=== PATIENT | male | born 1940 | race Caucasian/White ===

== ENCOUNTER 2022-09-08 09:28 | Outpatient (OUT) | payer MEDICARE, OTHER, SELFPAY ==
[2022-09-08 10:58] LABS: Albumin Level 3.7 g/dL (3.4-5.0); Anion Gap 9.6; BUN Creatinine Ratio 15.5; Calcium 8.4 mg/dL (8.5-10.1); Carbon Dioxide 29.3 mmol/L (21.0-32.0); Chloride 107 mmol/L (98-107); Estimated GFR (African America >60 (>=60); Estimated GFR (Non-African Ame >60 (>=60); Free T3 2.26 pg/mL (2.18-3.98); Glucose 103 mg/dL (74-106); Phosphorus 3.4 mg/dL (2.6-4.7); Potassium 3.9 mmol/L (3.5-5.1); Sodium 142 mmol/L (136-145); Thyroid Stimulating Hormone 0.163 uIU/mL (0.358-3.740)
[2022-09-08 11:13] LABS: Prostate Specific Antigen Dx 1.37 ng/mL (<=4.00)
[2022-09-08 13:01] LABS: Estimated Average Glucose 77 mg/dL; Glycohemoglobin A1C 4.3 % (4.5-6.2)
[2022-09-09 04:07] LABS: Testosterone 194 ng/dL (264-916)
== END 2022-09-08 09:29 | disposition home or self-care (01) ==
PROVIDERS: PCP Family Medicine; Visit Provider Internal Medicine
DX: E23.0 Hypopituitarism (principal); E03.8 Other specified hypothyroidism; E27.49 Other adrenocortical insufficiency; E03.9 Hypothyroidism, unspecified
CPT/HCPCS: 36415; 80069; 83036; 84153; 84403; 84439; 84443; 84481

== ENCOUNTER 2023-03-05 12:11 | Outpatient (OUT) | payer MEDICARE, OTHER, SELFPAY ==
[2023-03-05 12:31] LABS: Basophils Absolute Auto 0.1 10^3/uL (0.0-0.1); Basophils Percent Auto 1.3 % (0.2-2.0); Eosinophils Percent Auto 0.9 % (0.9-7.0); Hematocrit 40.3 % (42.0-54.0); Hemoglobin 13.8 g/dL (14.0-18.0); Immature Granulocytes Abs Auto 0.01 10^3/uL (0.00-0.03); Immature Granulocytes Pct Auto 0.2 % (0.0-0.5); Lymphocytes Absolute Auto 1.3 10^3/uL (1.2-3.8); Lymphocytes Percent Auto 29.7 % (20.5-60.0); Mean Corpuscular HGB Conc 34.2 g/dL (29.9-35.2); Mean Corpuscular Hemoglobin 29.6 pg (25.9-34.0); Mean Corpuscular Volume 86.5 fL (80.0-94.0); Monocytes Absolute Auto 0.3 10^3/uL (0.3-0.8); Monocytes Percent Auto 6.9 % (1.7-12.0); Neutrophils Absolute Auto 2.7 10^3/uL (1.4-6.5); Platelet Count 167 10^3/uL (150-450); Red Blood Count 4.66 10^6/uL (4.70-6.10); Red Cell Distribution Width 12.6 % (11.0-15.0); White Blood Count 4.5 10^3/uL (4.0-11.0)
[2023-03-05 13:01] LABS: Alanine Aminotransferase 19 U/L (16-63); Albumin Globulin Ratio 1.1; Albumin Level 3.7 g/dL (3.4-5.0); Alkaline Phosphatase 74 U/L (46-116); Anion Gap 7.2; Aspartate Amino Transferase 20 U/L (15-37); BUN Creatinine Ratio 14.4; Bilirubin Total 0.9 mg/dL (0.2-1.0); Calcium 8.7 mg/dL (8.5-10.1); Carbon Dioxide 31.5 mmol/L (21.0-32.0); Chloride 104 mmol/L (98-107); Estimated GFR (African America >60 (>=60); Estimated GFR (Non-African Ame 59 (>=60); Globulin 3.4 g/dL; Glucose 87 mg/dL (74-106); Potassium 3.7 mmol/L (3.5-5.1); Sodium 139 mmol/L (136-145); Total Protein 7.1 g/dL (6.4-8.2)
[2023-03-05 13:23] LABS: Free T4 0.88 ng/dL (0.76-1.46)
== END 2023-03-05 12:12 | disposition home or self-care (01) ==
PROVIDERS: PCP Family Medicine; Visit Provider Family Medicine
DX: R11.0 Nausea (principal); E03.9 Hypothyroidism, unspecified; I10 Essential (primary) hypertension; R53.83 Other fatigue; D51.0 Vitamin B12 deficiency anemia due to intrinsic factor deficiency
CPT/HCPCS: 36415; 80053; 82607; 82746; 84439; 84443; 85025

== ENCOUNTER 2023-03-11 09:09 | Outpatient (OUT) | payer MEDICARE, OTHER, SELFPAY ==
[2023-03-11 09:44] LABS: Hemoglobin 13.3 g/dL (14.0-18.0)
[2023-03-11 10:06] LABS: Albumin Level 3.6 g/dL (3.4-5.0); Anion Gap 11.5; BUN Creatinine Ratio 19.4; Calcium 8.5 mg/dL (8.5-10.1); Carbon Dioxide 29.8 mmol/L (21.0-32.0); Chloride 105 mmol/L (98-107); Estimated GFR (African America >60 (>=60); Estimated GFR (Non-African Ame >60 (>=60); Free T3 1.34 pg/mL (2.18-3.98); Glucose 83 mg/dL (74-106); Phosphorus 3.5 mg/dL (2.6-4.7); Potassium 3.3 mmol/L (3.5-5.1); Sodium 143 mmol/L (136-145); Thyroid Stimulating Hormone 0.503 uIU/mL (0.358-3.740)
[2023-03-11 10:23] LABS: Prostate Specific Antigen Dx 0.37 ng/mL (<=4.00)
[2023-03-11 11:09] LABS: Free T4 0.84 ng/dL (0.76-1.46)
[2023-03-12 04:07] LABS: Testosterone <3 ng/dL (264-916)
== END 2023-03-11 09:10 | disposition home or self-care (01) ==
LOC: LAB 09:10
PROVIDERS: PCP Family Medicine; Visit Provider Internal Medicine
DX: E23.0 Hypopituitarism (principal); I10 Essential (primary) hypertension; E03.8 Other specified hypothyroidism; E27.49 Other adrenocortical insufficiency; E03.9 Hypothyroidism, unspecified
CPT/HCPCS: 36415; 80069; 82306; 84153; 84403; 84439; 84443; 84481; 85018

== ENCOUNTER 2023-03-12 15:17 | Emergency (ER) | payer MEDICARE, OTHER, SELFPAY ==
[2023-03-12] VITALS (18 sets, daily range): BP systolic 151–178; BP diastolic 61–71; PULSE 53–64; RESP 13–26; TEMP 36.9; O2SAT 92–99; BMI 23.6
--- NOTE | 2023-03-12 15:48 | ECG_ITS ---
The [facility] Test Date: 2023-03-12 Pat Name: SHELDON BROCK Department: Room: - Gender: Male Personal Counselor: : 1940 Requested By: NABIL DÍAZ Order Number: [id number] Reading MD: SUE ALEJO Measurements Intervals [place] Rate: 58 P: 34 [place]: 134 QRS: -39 QRSD: 104 T: 9 QT: 446 QTc: 443 Interpretive Statements 1100 Sinus rhythm 1102 Sinus arrhythmia 2440 Incomplete right bundle branch block 7200 Abnormal left axis deviation ST/T wave changes, can't exclude inferior ischemia 9130 borderline ECG No previous ECG available for comparison Electronically Signed On 03-13-2023 7:05:57 EST by SUE ALEJO
--- NOTE | 2023-03-12 15:48 | XR_ITS ---
The [address] [address] Patient Name: SHELDON BROCK MRN: [id number] date: 1940 Sex: M Assigned Patient Location: ER Current Patient Location: ER Accession/Order Number: [id number] Exam Date: 03/12/2023 16:15 Report Date: 03/12/2023 17:10 At the request of: MARILEE CONNELLY Procedure: XR chest 1V EXAM: XR chest 1V TECHNIQUE: Single AP view chest HISTORY: chest pain COMPARISON: None. FINDINGS: The heart and mediastinum are unremarkable. The lung song are clear of any acute infiltrate, effusion or mass. No acute bony abnormality. XR/XR chest 1V IMPRESSION: No acute pulmonary disease. Electronically authenticated by: EFRAIN WINSTON Date: 03/12/2023 17:10
[2023-03-12 15:57] LABS: Basophils Absolute Auto 0.1 10^3/uL (0.0-0.1); Eosinophils Absolute Auto 0.1 10^3/uL (0.0-0.7); Eosinophils Percent Auto 1.5 % (0.9-7.0); Hematocrit 38.3 % (42.0-54.0); Hemoglobin 12.9 g/dL (14.0-18.0); Immature Granulocytes Abs Auto 0.05 10^3/uL (0.00-0.03); Immature Granulocytes Pct Auto 0.6 % (0.0-0.5); Lymphocytes Absolute Auto 3.2 10^3/uL (1.2-3.8); Lymphocytes Percent Auto 39.4 % (20.5-60.0); Mean Corpuscular HGB Conc 33.7 g/dL (29.9-35.2); Mean Corpuscular Hemoglobin 29.9 pg (25.9-34.0); Mean Corpuscular Volume 88.7 fL (80.0-94.0); Mean Platelet Volume 9.4 fL (9.5-13.5); Monocytes Absolute Auto 0.5 10^3/uL (0.3-0.8); Monocytes Percent Auto 6.3 % (1.7-12.0); Neutrophils Absolute Auto 4.1 10^3/uL (1.4-6.5); Neutrophils Percent Auto 51.2 % (43.0-75.0); Platelet Count 188 10^3/uL (150-450); Red Blood Count 4.32 10^6/uL (4.70-6.10); Red Cell Distribution Width 12.8 % (11.0-15.0); White Blood Count 8.1 10^3/uL (4.0-11.0)
[2023-03-12 16:09] LABS: Alanine Aminotransferase 23 U/L (16-63); Albumin Globulin Ratio 1.1; Albumin Level 3.7 g/dL (3.4-5.0); Alkaline Phosphatase 83 U/L (46-116); Anion Gap 11.6; Aspartate Amino Transferase 14 U/L (15-37); BUN Creatinine Ratio 20.4; Bilirubin Total 0.5 mg/dL (0.2-1.0); Calcium 8.6 mg/dL (8.5-10.1); Carbon Dioxide 30.5 mmol/L (21.0-32.0); Chloride 104 mmol/L (98-107); Estimated GFR (African America >60 (>=60); Estimated GFR (Non-African Ame >60 (>=60); Globulin 3.3 g/dL; Glucose 85 mg/dL (74-106); Potassium 3.1 mmol/L (3.5-5.1); Sodium 143 mmol/L (136-145)
[2023-03-12 16:16] LABS: Troponin I High Sensitivity 5.7 pg/mL (4.0-76.1)
--- NOTE | 2023-03-12 16:50 | ED_ITS ---
HPI - Chest Pain General Chief Complaint: Chest Pain Stated Complaint: Chest Pain Time Seen by Provider: 03/12/23 16:49 Source: patient and family Mode of arrival: walk-in History of Present Illness HPI narrative: this patient's here for evaluation of a sharp stabbing pain in his chest area. He says he's had it for about four days. It is never a continuous pain. He said it just quickly calms and goes away very quickly. He says it feels like a sharp stabbing discomfort over the left precordium. Does not radiate to the neck jaw or arms. No associated diaphoresis or syncopal episodes. No headache. No shortness of breath. No squeezing or pressure-type discomfort. Has no tearing or ripping sensation into the back area. No syncopal episodes no palpitations or history of heart problems. He thinks he's had a stress test over the years but was never told he had any problems. He is not any swelling of his legs. He's not had any recent upper respiratory or influenza type symptoms he's not had fever cough sputum. No history of deep vein thrombosis or PE and he has no risk factors. He feels fine otherwise. He says he spit episodes he's had approximately 18 of them today but again they only last a brief 2nd and then they just go away. He cannot really reproduce the discomfort with any type of movement and is aware of. Related Data Allergies Allergy/AdvReac Type Severity Reaction Status Date / Time No Known Drug Allergies Allergy Verified 03/12/23 15:30 Exam Narrative Exam Narrative: very pleasant gentleman blood pressure systolic slightly elevated but his pulse oximetry is normal afebrile he has no respiratory distress he appears in no discomfort. He is not experiencing any in the brief transient stabbing episodes that he was describing as above. HEENT examination shows no carotid bruits another set on either side. There is no jugular vein distention. There is no cervical adenitis. Neck is soft and supple. Lungs are clear with no wheezes rales or rhonchi Heart sounds are normal no S3-S4 or murmur. We did him rotate his upper torso and his chest wall and palpate and I cannot reproduce his symptoms at all. There is no inflammation of the chest area noted. Physical extremities have no swelling edema deep vein thrombosis or phlebitis on clinical exam. Neurological examination shows no focal neurological findings. Constitutional Vital Signs, click to edit/add: Last Vital Signs Temp 98.5 F 03/12/23 15:26 Pulse 60 03/12/23 18:10 Resp 15 03/12/23 18:10 BP 178/71 H 03/12/23 15:38 Pulse Ox 99 03/12/23 18:10 O2 Del Method Room Air 03/12/23 15:26 Course Vital Signs Vital signs: Vital Signs Temperature 98.5 F 03/12/23 15:26 Pulse Rate 60 03/12/23 15:26 Respiratory Rate 16 03/12/23 15:26 Blood Pressure 151/61 H 03/12/23 15:26 Pulse Oximetry 99 03/12/23 15:26 Oxygen Delivery Method Room Air 03/12/23 15:26 Temperature 98.5 F 03/12/23 15:26 Pulse Rate 60 03/12/23 18:10 Respiratory Rate 15 03/12/23 18:10 Blood Pressure 178/71 H 03/12/23 15:38 Pulse Oximetry 99 03/12/23 18:10 Oxygen Delivery Method Room Air 03/12/23 15:26 MDM - Chest Pain MDM Narrative Medical decision making narrative: patient presents with atypical presentation of sharp transient chest pain. Cardiac enzymes chest x-ray EKG are all normal. I believe this is more of an atypical problem. 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 Lab Data Labs: Lab Results 03/12/23 Range/Units 15:43 WBC 8.1 (4.0-11.0) 10^3/uL RBC 4.32 L (4.70-6.10) 10^6/uL Hgb 12.9 L (14.0-18.0) g/dL Hct 38.3 L (42.0-54.0) % MCV 88.7 (80.0-94.0) fL MCH 29.9 (25.9-34.0) pg MCHC 33.7 (29.9-35.2) g/dL RDW 12.8 (11.0-15.0) % Plt Count 188 (150-450) 10^3/uL MPV 9.4 L (9.5-13.5) fL Neut % (Auto) 51.2 (43.0-75.0) % Lymph % (Auto) 39.4 (20.5-60.0) % [place] % (Auto) 6.3 (1.7-12.0) % Eos % (Auto) 1.5 (0.9-7.0) % Baso % (Auto) 1.0 (0.2-2.0) % Neut # (Auto) 4.1 (1.4-6.5) 10^3/uL Lymph # (Auto) 3.2 (1.2-3.8) 10^3/uL [place] # (Auto) 0.5 (0.3-0.8) 10^3/uL Eos # (Auto) 0.1 (0.0-0.7) 10^3/uL Baso # (Auto) 0.1 (0.0-0.1) 10^3/uL Abs Immat Gran (auto) 0.05 H (0.00-0.03) 10^3/uL Imm/Tot Granulo (auto) 0.6 H (0.0-0.5) % Sodium 143 (136-145) mmol/L Potassium 3.1 L (3.5-5.1) mmol/L Chloride 104 (98-107) mmol/L Carbon Dioxide 30.5 (21.0-32.0) mmol/L Anion Gap 11.6 BUN 22.0 H (7.0-18.0) mg/dL Creatinine 1.08 (0.70-1.30) mg/dL Est GFR ( Amer) >60 (>=60) Est GFR (Non-Af Amer) >60 (>=60) BUN/Creatinine Ratio 20.4 Glucose 85 (74-106) mg/dL Calcium 8.6 (8.5-10.1) mg/dL Total Bilirubin 0.5 (0.2-1.0) mg/dL AST 14 L (15-37) U/L ALT 23 (16-63) U/L Alkaline Phosphatase 83 (46-116) U/L Troponin I High Sens 5.7 (4.0-76.1) pg/mL NT-Pro-B Natriuret Pep 172.0 (<=1800.0) pg/mL Total Protein 7.0 (6.4-8.2) g/dL Albumin 3.7 (3.4-5.0) g/dL Globulin 3.3 g/dL Albumin/Globulin Ratio 1.1 Discharge Plan Discharge Chief Complaint: Chest Pain Clinical Impression: Atypical chest pain Patient Disposition: Home, Self-Care Time of Disposition Decision: 18:39 Additional Instructions: if symptoms persist have further evaluation and testing done as an outpatient. If the pain never becomes persisting return to the Emergency Room Stand Alone Forms: Portal Instructions Referrals: Sarah Solorzano MD [Primary Care Provider] - 1 week
== END 2023-03-12 18:47 | disposition home or self-care (01) ==
PROVIDERS: Emergency Provider Emergency Medicine Emergency Medical Services; PCP Family Medicine
DX: R07.89 Other chest pain (principal)
CPT/HCPCS: 36415; 71045; 80053; 83880; 84484; 85025; 93005; 99285

== ENCOUNTER 2023-09-14 09:39 | Outpatient (OUT) | payer MEDICARE, OTHER, SELFPAY ==
--- OUTSIDE RECORDS SUMMARY | 2023-09-14 10:02 | XMS_ITS | CCD ---
Author Organization [facility] Care Team Providers Care Can Sorter Name Role Phone PHYSICIAN, DEFAULT Unavailable Unavailable PHYSICIAN, DEFAULT Unavailable Unavailable AONA, GENE Unavailable Unavailable PHYSICIAN, DEFAULT Unavailable Unavailable PHYSICIAN, DEFAULT Unavailable Unavailable AONA, GENE Unavailable Unavailable Nabil Díaz Primary Care Provider [facility], [facility] Attending Provider [phone] Nabil Díaz MD Primary Care Provider Nabil Díaz MD Primary Care Provider Nabil Díaz MD Primary Care Provider [phone] Laina Wallis Unavailable Nabil Díaz Unavailable DR NABIL DÍAZ Primary Care Unavailable ANTHONY, DR ZACH Power Attending Unavaila ble ANTHONY, DR ZACH Power Admitting Unavaila ble NEELAM, DR GALE Simon Consulting Unavailable WINDNAFINA, DR ZACH Power Consulting Unavaila ble DÍAZ, DR NABIL Romero Primary Care Unavailable RANDEETAKRISSY, DR BROWNING Attending Unavailable ELTAKRISSY, DR BROWNING Admitting Unavailable DÍAZ, DR NABIL Romero Primary Care Unavailable ELTAHAWY, DR BROWNING Attending Unavailable ELTAHAWCristopher, DR BROWNING Admitting Unavailable DÍAZ, DR NABIL Romero Primary Care Unavailable WINDNAFINA, DR ZACH Power Attending Unavaila ble ANTHONY, DR ZACH Power Admitting Unavaila ble WINDNAFINA, DR ZACH Power Consulting Unavaila ble DÍAZ, DR NABIL Romero Primary Care Unavailable DÍAZ, DR NABIL Romero Consulting Unavailable DÍAZ, DR NABIL Romero Attending Unavailable DÍAZ, DR NABIL Romero Admitting Unavailable DÍAZ, DR NABIL Romero Consulting Unavailable DÍAZ, DR NABIL Romero Primary Care Unavailable DÍAZ, DR NABIL Romero Attending Unavailable DÍAZ, DR NABIL Romero Admitting Unavailable MCGARRYJUANPABLO HUNTER Consulting Unavailable DÍAZ, DR NABIL Romero Primary Care Unavailable ELTAHAWY, DR BROWNING Admitting Unavailable ELTAHAWY, DR BROWNING Consulting Unavailable ELTAHAWY, DR BROWNING Attending Unavailable DÍAZ, DR NABIL Romero Primary Care Unavailable ELTAHAWY, DR BROWNING Consulting Unavailable ELTAHAWY, DR BROWNING Attending Unavailable ELTAHAWY, DR BROWNING Admitting Unavailable DÍAZ, DR NABIL Romero Primary Care Unavailable JOSE DANIEL, AHMALam Attending Unavailable JOSE DANIEL, AHLUISD Admitting Unavailable SAVITA SKY Consulting Unavailable DÍAZ, DR NABIL Romero Referring Unavailable DÍAZ, DR NABIL Romero Primary Care Unavailable DÍAZ, DR NABIL Romero Consulting Unavailable DÍAZ, DR NABIL Romero Attending Unavailable DÍAZ, DR NABIL Romero Admitting Unavailable Kevon Lord Unavailable MD Nabil Díaz Primary Care Provider DO Gama Weiner Emergency Provider Ishan Sharif Attending Unavaila ble NABIL DÍAZ Primary Care Unavailable ABHYANKAR, ZHANG Referring Unavailable ABHYANKAR, ZHANG Attending Unavailable ABHYANKAR, ZHANG Referring Unavailable NABIL DÍAZ Primary Care Unavailable NABIL DÍAZ Primary Care Unavailable ABHYANKAR, ZHANG Referring Unavailable NABIL DÍAZ Primary Care Unavailable NABIL DÍAZ Primary Care Unavailable ABHYANKAR, ZHANG Attending Unavailable ABHYANKAR, ZHANG Referring Unavailable Nabil Díaz Primary Care Unavailable Gama Weiner Admitting Unavailable Gama Weiner Attending Unavailable Nabil Díaz Primary Care Unavailable Asaad, Imad Admitting Unavailable Reba Shaikhad Attending Unavailable MD Nabil Díaz Primary Care Provider MD Aby Shaikh Attending Provider Allergies Allergy Classification Reported Allergen(s) Allergy Type Date of Onset Reaction(s) Facility (9 sources) Sucralfate; Translations: [SUCRALFATE] Drug Allergy 06-21-2018 Itching [facility] (1 source) Sucralfate; Translations: [Carafate] Drug Allergy [facility] Repository Medications Current Medications Medication Drug Class(es) Dates Sig (Normalized) Sig (Original) azithromycin 250 mg oral tablet (20 sources) Macrolide Antimicrobial Start: 04-14-2022 Azithromycin 250 MG as directed Orally 2 tabs po today, then 1 tab daily x 4 more days for 5 Mar, Active Start: 04-14-2022 citalopram 10 mg oral tablet (5 sources) Serotonin Reuptake Inhibitor Start: 05-27-2023 take 10 mg by mouth once daily Citalopram Active 10 MG PO Daily May 27, 2023 12:00am dicyclomine hydrochloride 10 mg oral capsule (5 sources) Anticholinergic Start: 05-27-2023 take 10 mg by mouth twice daily Dicyclomine Active 10 MG PO Twice daily 60 30 May 27, 2023 12:00am folic acid 1 mg oral tablet (8 sources) Start: 10-30-2022 End: 10-25-2023 take 1 mg by mouth once daily Folic Acid Active 1 MG PO Daily May 27, 2023 12:00am Comment on above: Take 1 tablet by goyo th once daily. hydrocortisone 10 mg oral tablet (20 sources) Corticosteroid Start: 03-22-2021 take 10 mg by mouth once daily Hydrocortisone Active 10 MG PO Daily March 22, 2021 1:00am take 1 tablet by mouth every six hours Hydrocortisone 20 MG 1 tablet with food or milk Orally Four times a day Active Comment on above: Take 10 mg by mouth once daily. levothyroxine sodium 0.1 mg oral tablet (20 sources) l-Thyroxine Start: 06-16-2020 take 100 ug by mouth once daily Levothyroxine Active 100 MCG PO Daily March 22, 2021 1:00am take 1 tablet by mouth once lio y Levothyroxine Sodium 100 MCG TAKE 1 TABLET BY MOUTH EVERY DAY Oral for 90 Days Active methylPREDNISolone 4 mg oral tablet (3 sources) Corticosteroid Start: 03-05-2023 methylPREDNISolone 4 MG as directed Orally for 6 days Feb, Active ondansetron 4 mg oral tablet (20 sources) Serotonin-3 Receptor Antagonist Start: 06-19-2022 take 1 tablet by mouth three times daily as needed Ondansetron HCl 4 MG 1 tablet Orally tid prn for 4 days Jun, Active Start: 10-31-2020 take 1 tablet by goyo th every eight hours as needed for nausea and nausea ondansetron orally disintegrating (ZOFRAN ODT) 4 mg disintegrating tablet Indications: Nausea Take 1 tablet by mouth every 8 hours as needed for nausea/vomiting. 30 tablet 1 10/31/2020 Active Comment on above: Take 1 tablet by goyo th every 8 hours as needed for nausea/vomiting. paxlovid (300/100) 20 x 150 mg & 10 x 100mg tablet therapy pack (3 sources) Start: 3 take 3 tablets by mouth every twelve hours Paxlovid (300/100) 20 x 150 MG & 10 x 100MG 3 tablets Orally Twice a day for 5 days Oct, Active {20 (nirmatrelvir 150 MG Oral Tablet) / 10 (ritonavir 100 MG Oral Tablet) } Pack [Paxlovid 5-Day] (7 sources) Start: 3 take 3 tablets by mouth every twelve hours Paxlovid (300/100) 20 x 150 MG & 10 x 100MG 3 tablets Orally Twice a day for 5 days Oct, Active Completed/Discontinued Medications Medication Drug Class(es) Dates Sig (Normalized) Sig (Original) amitriptyline hydrochloride 10 mg oral tablet (6 sources) Tricyclic Antidepressant Start: 12-25-2021 take 1 tablet by mouth once daily at bedtime amitriptyline (ELAVIL) 10 mg tablet TAKE 1 TABLET BY MOUTH EVERYDAY AT BEDTIME 0 12/25/2021 Active Comment on above: TAKE 1 TABLET BY GOYO TH EVERYDAY AT BEDTIME amLODIPine 5 mg oral tablet (20 sources) Dihydropyridine Calcium Channel Alec Start: 12-01-2016 take 1 tablet by mouth once daily amLODIPine (NORVASC) 5 mg tablet Take 5 mg by mouth once daily. 0 12/01/2016 Active Comment on above: Take 5 mg by mouth o nce daily. atorvastatin 80 mg oral tablet (20 sources) HMG-CoA Reductase Inhibitor Start: 11-18-2016 take 1 tablet by mouth once daily atorvastatin (LIPITOR) 80 mg tablet Take 80 mg by mouth once daily. 11 11/18/2016 Active Start: 11-18-2016 take 1 tablet by goyo th once daily atorvastatin (LIPITOR) 10 mg tablet Take 10 mg by mouth once daily. 11 11/18/2016 Active Comment on above: Take 10 mg by mouth once daily. Take 80 mg by mouth once daily. B-12 - up to 1000 mcg (13 sources) Start: 03-17-2023 B-12 - up to 1 000 mcg Mar, 1 mL Start: 01-13-2023 B-12 - up to 1 000 mcg Dec, 1000 mcg Start: 11-19-2022 B-12 - up to 1 000 mcg Nov, 1000 mcg bisacodyl 5 mg delayed release oral tablet (8 sources) Stimulant Laxative Start: 05-10-2021 Bisacodyl ( DULCOLAX) 5 mg tab Use as directed for Miralax / Gatorade Bowel Prep Kit 4 tablet 0 05/10/2021 Active Comment on above: Use as directed for Miralax / Gatorade Bowel Prep Kit carvedilol 6.25 mg oral tablet (20 sources) alpha-Adrenergic Alec, beta-Adrenergic Alec carvedilol (COREG) 6.25 mg tablet Take by mouth every 12 hours. 0 Active take 1 tablet by goyo th every twelve hours Carvedilol 6.25 MG 1 tablet with food Orally Twice a day Active Comment on above: Take by mouth every 12 hours. Gatorade Sports Drink (8 sources) Start: 05-10-2021 Gatorade Sports Drink Use as directed for Miralax / Gatorade Bowel Prep Kit 0 05/10/2021 Active Comment on above: Use as directed for Miralax / Gatorade Bowel Prep Kit icosapent ethyl 1000 mg oral capsule (7 sources) icosapent ethyl (VASCEPA) 1 gram capsule icosapent ethyl (VASCEPA) 1 gram capsule Vascepa 1 gram capsule TAKE 2 CAPSULES BY MOUTH TWICE A DAY 0 Active Comment on above: Vascepa 1 gram capsu le TAKE 2 CAPSULES BY MOUTH TWICE A DAY lisinopril 5 mg oral tablet (7 sources) Angiotensin Converting Enzyme Inhibitor take 1 tablet by mouth once daily lisinopril (ZESTRIL, PRINIVIL) 5 mg tablet lisinopril 5 mg tablet TAKE 1 TABLET BY MOUTH EVERY DAY 0 Active Comment on above: lisinopril 5 mg tabl et TAKE 1 TABLET BY MOUTH EVERY DAY 24 hr metoprolol succinate 25 mg extended release oral tablet (16 sources) beta-Adrenergic Alec Start: 2 End: 4 take 1 tablet by mouth once daily Metoprolol Succinate (Toprol Xl) 25 mg Tablet Extended Release 24 Hr Discontinued 25 MG PO Daily March 25, 2021 1:00am May 27, 2023 1:53pm Comment on above: Take 25 mg by mouth once daily. omeprazole 40 mg delayed release oral capsule (20 sources) Proton Pump Inhibitor Start: take 1 capsule by mouth once daily omeprazole (PRILOSEC) 40 mg capsule Take 1 capsule by mouth once daily. 30 capsule 3 05/28/2021 Active take 1 capsule by mouth twice da dona Omeprazole 20 MG TAKE 1 CAPSULE BY MOUTH TWICE A DAY Oral for 30 Days Active Comment on above: Take 1 capsule by [facility] once daily. polyethylene glycol 3350 82285 mg powder for oral solution (8 sources) Osmotic Laxative Start: 05-10-2021 polyethylene glycol 3350 (MIRALAX, GLYCOLAX) 17 gram/dose powder Use as directed for Miralax / Gatorade Bowel Prep Kit 238 g 0 05/10/2021 Active Comment on above: Use as directed for Miralax / Gatorade Bowel Prep Kit Testosterone (20 sources) Androgen Start: 05-12-2022 Start: 05-12-2022 TESTOSTERONE 2 7 Apr, 2022 0.5 mL Start: 04-08-2022 Start: 04-08-2022 TESTOSTERONE 2 Mar, 0.5 mL Start: 03-22-2021 Testosterone C ypionate Active 200 MG SUBCUT EVERY 3 WEEKS March 22, 2021 1:00am inject 100 mg by int ramuscular injection every other week testosterone cypionate (DEPO-TESTOSTERONE) 100 mg/mL injection Inject 100 mg intramuscularly every 2 weeks. 0 Active Testosterone Cyp ionate 200 MG/ML (Schedule III Drug) INJECT 0.5ML INTRAMUSCULARLY EVERY 3 WEEKS Intramuscular for 90 Days Active Testosterone Cyp ionate 200 MG/ML (Schedule III Drug) INJECT 0.5ML INTRAMUSCULARLY EVERY 3 WEEKS Intramuscular for 90 Days Active Comment on above: Inject 100 mg intram uscularly every 2 weeks. Testosterone-Pt brought own med (20 sources) Start: 04-08-2023 Testosterone-Pt brought own med Mar, 0.5 mL Start: 03-17-2023 Testosterone-P t brought own med Mar, 0.5 mL Start: 02-09-2023 Testosterone-P t brought own med Jan, 0.5 mL Start: 01-13-2023 Testosterone-P t brought own med Dec, 0.5 mL Start: 12-16-2022 Testosterone-P t brought own med Dec, 0.5 mL Start: 11-19-2022 Testosterone-P t brought own med Nov, 0.5 mL Start: 10-23-2022 Testosterone-P t brought own med Oct, 0.5 Start: 09-10-2022 Testosterone-P t brought own med Aug, 0.5 mL Start: 08-19-2022 Testosterone-P t brought own med Aug, 0.5 mL Start: 08-19-2022 Start: 07-28-2022 Start: 07-28-2022 Testosterone-P t brought own med July, 100 mg Start: 07-02-2022 Start: 07-02-2022 Testosterone-P t brought own med Jun, 0.5 Start: 06-06-2022 Start: 06-06-2022 Testosterone-P t brought own med May, Problems Active Problems Problem Classification Problem Date Documented Da te Episodic/Chronic Abdominal pain (20 sources) Generalized abdominal pain; Translations: [Generalized abdominal pain] Onset: 08-31-2017 05-27-2023 Episodic Anxiety disorders (10 sources) Generalized anxiety disorder; Translations: [Generalized anxiety disorder] Chronic Cardiac dysrhythmias (8 sources) Ventricular premature beats; Translations: [Ventricular premature depolarization] Onset: 02-27-2012 02-27-2012 Chronic Chronic obstructive pulmonary disease and bronchiectasis (14 sources) Bronchitis, not specified as acute or chronic; Translations: [Bronchitis] Onset: 09-05-2021 Episodic Coagulation and hemorrhagic disorders (20 sources) Platelet count below reference range; Translations: [Thrombocytopenia, unspecified] Onset: 10-02-2016 03-31-2018 Chronic Deficiency and other anemia (20 sources) Pancytopenia; Translations: [Other pancytopenia] Onset: 10-29-2017 03-22-2021 Chronic Deficiency and other anemia (5 sources) Nutritional anemia; Translations: [Vitamin B12 deficiency anemia, unspecified] Episodic Deficiency and other anemia (1 source) Folate deficiency anemia due to dietary causes; Translations: [Dietary folate deficiency anemia] 10-30-2022 Episodic Deficiency and other anemia (9 sources) Pernicious anemia; Translations: [Vitamin B12 deficiency anemia due to intrinsic factor deficiency] 07-24-2023 Episodic Deficiency and other anemia (3 sources) Vitamin B12 deficiency anemia due to intrinsic factor deficiency Episodic Diseases of white blood cells (10 sources) Lymphocytosis; Translations: [Lymphocytosis (symptomatic)] Onset: 10-29-2017 Chronic Disorders of lipid metabolism (20 sources) Hyperlipidemia; Translations: [Hyperlipidemia, unspecified] Onset: 02-27-2012 02-27-2012 Chronic Essential hypertension (20 sources) Hypertensive disorder; Translations: [Essential (primary) hypertension] Onset: 04-02-2011 04-02-2011 Chronic Immunizations and screening for infectious disease (10 sources) Vaccination given; Translations: [Encounter for immunization] Episodic Nausea and vomiting (20 sources) Nausea; Translations: [Nausea] Episodic Neoplasms of unspecified nature or uncertain behavior (2 sources) Monoclonal gammopathy of uncertain significance; Translations: [Monoclonal gammopathy] Chronic Noninfectious gastroenteritis (2 sources) Chronic diarrhea; Translations: [Noninfective gastroenteritis and colitis, unspecified] Episodic Other circulatory disease (10 sources) Elevated blood-pressure reading without diagnosis of hypertension; Translations: [Elevated blood-pressure reading, without diagnosis of hypertension] Episodic Other endocrine disorders (1 source) Hypopituitarism; Translations: [HYPOPITUITARISM] Onset: 03-21-2022 Chronic Other gastrointestinal disorders (10 sources) Irritable bowel syndrome with diarrhea; Translations: [Irritable bowel syndrome with diarrhea] Chronic Other gastrointestinal disorders (5 sources) Irritable bowel syndrome; Translations: [Irritable bowel syndrome without diarrhea] 05-27-2023 Chronic Other gastrointestinal disorders (4 sources) Irritable bowel syndrome without diarrhea; Translations: [Irritable bowel syndrome] 05-27-2023 Chronic Other gastrointestinal disorders (20 sources) Diarrhea; Translations: [Diarrhea] Episodic Other nervous system disorders (4 sources) Other symptoms and signs involving cognitive functions and awareness; Translations: [OTH SX SIGNS COG FUNC AND AWARENESS] Onset: 07-22-2022 Episodic Other nutritional; endocrine; and metabolic disorders (12 sources) Weight decreased; Translations: [Weight loss, unintentional] Episodic Other nutritional; endocrine; and metabolic disorders (10 sources) Abnormal weight loss; Translations: [Abnormal weight loss] Episodic Other screening for suspected conditions (not mental disorders or infectious disease) (20 sources) Other specified abnormal findings of blood chemistry; Translations: [Blood chemistry abnormal] Episodic Other upper respiratory infections (10 sources) Chronic sinusitis; Translations: [Chronic sinusitis, unspecified] Chronic Thyroid disorders (20 sources) Acquired hypothyroidism; Translations: [Hypothyroidism, unspecified] Onset: 03-21-2022 Chronic Unclassified (3 sources) CONTACT W/AND (SUSP) EXPOS COVID-19; Translations: [CONTACT W/AND (SUSP) EXPOS COVID-19] Onset: 08-23-2021 Unclassified (11 sources) Encounter for health counseling related to travel; Translations: [ENC FOR HEALTH SEED POTATO ARRANGER RELTD TRAVEL] Onset: 08-23-2021 Viral infection (8 sources) Disease caused by 2019-nCoV; Translations: [COVID-19] 10-20-2022 Episodic Viral infection (11 sources) Disease caused by 2019-nCoV; Translations: [COVID-19] Past or Other Problems Problem Classification Problem Date Documented Da te Episodic/Chronic Acute bronchitis (10 sources) Acute bronchitis; Translations: [Acute bronchitis, unspecified] Onset: 08-20-2016 Episodic Cardiac dysrhythmias (2 sources) Palpitations; Translations: [PALPITATIONS] Onset: 04-09-2022 Episodic Deficiency and other anemia (14 sources) Anemia; Translations: [Anemia, unspecified] Onset: 10-02-2016 03-31-2018 Episodic Malaise and fatigue (11 sources) Fatigue; Translations: [Other fatigue] Onset: 03-01-2018 Episodic Other and unspecified benign neoplasm (8 sources) Pituitary adenoma; Translations: [Benign neoplasm of pituitary gland] Onset: 05-21-2011 05-21-2011 Episodic Other injuries and conditions due to external causes (5 sources) Exhaustion due to excessive exertion, initial encounter; Translations: [EXHAUSTION D/T EXCESS EXERTION INIT] Onset: 04-08-2022 Episodic Other nutritional; endocrine; and metabolic disorders (1 source) Anorexia; Translations: [Anorexia] Onset: 10-20-2022 Episodic Other upper respiratory infections (20 sources) Recurrent acute sinusitis; Translations: [Acute recurrent maxillary sinusitis] Onset: 09-03-2016 09-03-2016 Episodic Residual codes; unclassified (8 sources) Reduced libido; Translations: [Decreased libido] Onset: 04-02-2011 04-02-2011 Episodic Unclassified (1 source) Contact with and (suspected) exposure to covid-19 Z20.822 Unclassified (1 source) CONTACT W/AND (SUSP) EXPOS COVID-19; Translations: [CONTACT W/AND (SUSP) EXPOS COVID-19] Onset: 08-20-2021 Results Test Name Value Interpretation Reference Range Facility Blood Urea Nitrogenon 2023 Urea nitrogen [Mass/Vol] 16 mg/dL Normal 7-25 [facility] Comment on above: Order Comment: STAT FOR CT Performed By: #### B UN, CREAT #### [address] abdomen pelvis w conon CT abdomen pelvis w con [facility] [place] [address] [place] [address] CT Scan Report Signed Patient: Nomi Mckee MR#: [id number] 8 : 1940 Acct:[id number] Age/Sex: 82 / M ADM Date: 06/04/23 Loc: CT Room: Type: [facility] Attending Dr: Aby Shaikh MD Copies to: Aby Shaikh MD Ordering Provider: Aby Shaikh MD Date of Service: 06/04/23 CT/CT abdomen pelvis w con: R10.9 - Unspecified abdominal pain CT ABDOMEN AND PELVIS WITH CONTRAST COMPARISON: None CLINICAL DATA: Burning sensation at the left groin for months. Spiral images were obtained through the abdomen and pelvis following oral and 90 mL of Isovue-300. This CT exam was performed using one or more following dose reduction techniques: Automated exposure control, adjustment of the mA and/or kV according to patient size, or use of iterative reconstruction technique. Limited cuts through the lung bases show possible tiny right lower lobe nodule on the first image measuring 4 mm in size. The gallbladder is contracted. No obvious calcified gallstones are noted. There are a few tiny hepatic hypodensities which are difficult to fully evaluate due to size however they may be cysts. The spleen, pancreas and adrenal glands show no acute findings. There are symmetric renal nephrograms. Tiny renal cysts are present. There is slight fullness of the renal collecting system on the right. There is, however, no ureteral dilatation or stones. There is atherosclerotic plaque at the aorta and iliac arteries. No enlarged lymph nodes or ascites are seen. Small bowel loops are not distended. Mild stool is present along the colon. There are minor degenerative changes at the spine, greatest at the lower facets. Images through the pelvis show no dilated small bowel loops. No appendiceal inflammation is seen. There is mild distal colonic stool. There is minimal diverticular disease, without active inflammation. The prostate is slightly prominent. The bladder is not well-distended, limiting assessment. No ascites is identified. There is no inguinal hernia. There are some benign inguinal lymph nodes with fatty angeline. CT/CT abdomen pelvis w con IMPRESSION: POSSIBLE TINY INCIDENTAL RIGHT LOWER LOBE PULMONARY NODULE ON THE FIRST IMAGE. MILD RIGHT PELVICALIECTASIS, WITHOUT URETERAL DILATATION OR STONES. UNDER DISTENDED URINARY BLADDER, LIMITING ASSESSMENT. PROBABLE TINY HEPATIC AND RENAL CYSTS. NO OTHER ACUTE FINDINGS. Impression dictated by: Carri Alvarado M.D.06/04/2023 11:42 AM Dictation Location: [place] [address] Transcribed By: [facility] 06/04/23 1142 Dictated By: Carri Alvarado MD 06/04/23 1109 Signed By: 06/04/23 1142 [facility] Creatinineon 06-04-2023 Creatinine [Mass/Vol] 1.16 mg/dL Normal 0.70-1.30 [facility] Comment on above: Order Comment: STAT FOR CT Performed By: #### B GEE, CREAT #### [facility] [address] [place] [address] GFR/1.73 sq M.predicted MDRD (S/P/Bld) [Vol rate/Area] mL/min/{1.73_m2} [facility] Comment on above: Order Comment: STAT FOR CT Result Comment: PERF ORMED BY: [place] [address] PATHOLOGIST LINING SETTER CAL SEBASTIAN M.D. Performed By: #### B GEE, CREAT #### [facility] [address] [place] [address] Creatinine [Mass/volume] in Serum or PlasmaOrdered By: Aby Shaikh on 06-04-2023 Creatinine [Mass/Vol] 1.16 mg/dL 0.70-1.30 [facility] No Panel InformationOrdered By: Aby Shaikh on 06-04-2023 Estimated GFR (CKD-EPI) > 60.0 mL/Min [facility] Creatinine Clearance (Chem N/A [facility] Urea nitrogen [Mass/volume] in Serum or PlasmaOrdered By: Aby Shaikh on 06-04-2023 Urea nitrogen [Mass/Vol] 16 mg/dL 7 [facility] CNOVSPon 04-29-2023 CNOVSP Visit (SP) Office ([place]) MCKEENOMI Alfonso ([id number]) 1940 M Date Time Provider Department 04/29/23 2:15 PM ZHANG JAEGER During your visit today, we recorded the following information about you: Temperature Pulse Respiration Blood pressure 97.5 degrees 60/minute 16/minute 113/99 Weight Height 78.9 kg 1.854 m Donna Hopkins MA 04/29/2023 2:15 PM Signed Patient states he is having bowel issues which is not new he has had Colonoscopy's in the past, he is scheduled to see the GI Physician. LUIS Castillo Vivek, MD 05/02/2023 3:49 PM Signed NAME: Nomi Mckee NO.: [id number] DATE OF SERVICE: April 29, 2023 (Arlene) Some elements in this clinic note that are critical to medical decision making have been carefully reviewed and included from a prior clinic note dated: October 30, 2022 (Arlene) Additional Clinicians involved in oNmi Mckee's care: CC: anemia, thrombocytopenia, MGUS ASSESSMENT: Anemia, thrombocytopenia (stable), slight monoclonal protein (resolved) Work up has been negative - However, his B12 has been on the lower side of normal in the past. Suspect B12 deficiency - and will likely need replacement. Anemia has likely recovered with testosterone replacement which he continues. Interestingly he had undetectable haptoglobin with negative marybel. Maybe mild hemolysis, but this would not explain platelet deficiency. We have been monitoring his disease since 2017. His been M spike seems to have disappeared and maintains no other signs of a paraprotein. Low testosterone 2ndary to adrenal insufficiency and prior pituitary adenoma. Also has low cortisol. 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 PLAN: Continue B12 shot 1000 mcg Please do this at Dr. Díaz's office every 6 weeks Continue folic acid 1000 mcg RTC in 6 months repeat labs 1 week before - HPI: CASE HISTORY: Reverse Chronological Order 05/2021 - Had EGD / Colonoscopy neg H. Pylori, + hyperplastic colon polyp 08/2017 - did not show M spike on protein electrophoresis. 11/2016 - did not show M spike on protein electrophoresis. 10/03/2016 - Urinary protein electrophoresis shows no M protein. Serum protein electrophoresis does show an M spike of 0.24. 01/2016 - EGD normal Updated Visit, April 29, 2023: Gene returns today for a follow up. He has been receiving B12 shots with Dr. Díaz. B12 has improved, iron studies and folic acid are great. Anemia has improved, platelets have decreased slightly - not of concern. He continues testosterone shots as well. He takes Imodium for chronic diarrhea and pain. Likely a bacterial overgrowth, since he feels better after colonoscopy prep. I suggested trying metamucil. 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 More anemic this time Folate is low and B12 remains on the low side. No M-protein - will stop checking. 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 08/2021 caught COVID while he was in [facility] and was hospitalized. 05/2021 Had EGD / Colonoscopy neg H. Pylori, + hyperplastic colon polyp Labs reviewed and are stable. 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 His Soledad ( 4 years) is baby siting great grandchildren today. Updated Visit, October 05, 2020: GI evaluated - bacterial overgrowth noted. Getting further workup done at [facility] soon. He doesn't think B12 really helped him much. Continue conservative follow up. Has been enjoying traveling and did a riverboat cruise down the [facility] Updated Visit, March 26, 2020: This is a 79 year old male past medical history includes hyperlipidemia, irritable bowel syndrome, pituitary adenoma, hypertension. Had colonoscopy in 2015. Had EGD that was normal as well in January 2016. He is a former smoker. Presented originally with fatigue. Urinary protein electrophoresis from 10/03/16 shows no M protein. Repeat in November 2016 in August 2017 did not show M spike on protein electrophoresis. Serum protein electrophoresis from 10/03/16 does show an M spike of 0.24. B 12 normal, ferritin 409, iron 79, saturation is good. Normal tsh. In mid 2017 hospitalized for 8 days at [facility] with abdominal pain. He was found to have a bacterial infection. He lost 10 pounds which he is having difficulty gaining back. He was also found to have a low sodium level. He has occasional fatigue. He occasionally feels the need to take naps. He is consuming [address] abd without contrast with no abnormality. Today, he is getting fatigue more often even though he is very active. Also has diarrhea (more content not included)... Normal [facility] CBC W Auto Differential pane l (Bld)on 04-23-2023 Basophils (Bld) [#/Vol] 0.05 10*3/uL Normal <0.11 [facility] Comment on above: Order Comment: Speci men Type: BLOOD SPECIMEN [facility] Address: [address] [place], [place] [address] [address] Performed By: #### 2 532-0, 3084-1, 2776-03, #### [facility] CLIA [id number] [address] [place] [address] 47547 Basophils/100 WBC (Bld) 0.8 % Normal [facility] Comment on above: Order Comment: Speci men Type: BLOOD SPECIMEN [facility]: [facility] Address: [address] [place] [address] Performed By: #### 2 532-0, 308-1, 2776-03, #### [facility] CLIA [id number] [address] [place] [address] 36333 Differential cell count method Nom (Bld) Auto Normal [facility] Comment on above: Order Comment: Speci men Type: BLOOD SPECIMEN [facility] Address: [address] [place] [address] Performed By: #### 2 532-0, 3083-1, 2776-03, #### [facility] CLIA [id number] [address] [place] [address] 50461 Eosinophils (Bld) [#/Vol] 0.09 10*3/uL Normal <0.46 [facility] Comment on above: Order Comment: Speci men Type: BLOOD SPECIMEN [facility] Address: [address] [place] [address] Performed By: #### 2 532-0, 3083-1, 2776-03, #### [facility] CLIA [id number] [address] [place] [address] 92447 Eosinophils/100 WBC (Bld) 1.5 % Normal [facility] Comment on above: Order Comment: Speci men Type: BLOOD SPECIMEN [facility] Address: [address] [place] [address] Performed By: #### 2 532-0, 3083-1, 2776-03, #### [facility] CLIA [id number] [address] [place] [address] 95374 Erythrocyte distribution width (RBC) [Ratio] 13.2 % Normal 11.5-15.0 [facility] Comment on above: Order Comment: Speci men Type: BLOOD SPECIMEN [facility] Address: [address] [place] [address] Performed By: #### 2 532-0, 3084-1, 2777-1, 51080-3 #### [facility] CLIA [id number] [address] [place] [address] 55545 Hematocrit (Bld) [Volume fraction] 38.9 % Low 39.0-51.0 [facility] Comment on above: Order Comment: Speci men Type: BLOOD SPECIMEN [facility] Address: [address] [place] [address] Performed By: #### 2 532-0, 3084-1, 7-1, 52237-9 #### [facility] CLIA [id number] [address] [place] [address] 51376 Hemoglobin (Bld) [Mass/Vol] 13.5 g/dL Normal 13.0-17.0 [facility] Comment on above: Order Comment: Speci men Type: BLOOD SPECIMEN [facility] Address: [address] [place] [address] Performed By: #### 2 532-0, 3084-1, 7-1, 43394-7 #### [facility] CLIA [id number] [address] [place] [address] 15409 Immature granulocytes (Bld) [#/Vol] 10*3/uL Normal <0.10 [facility] Comment on above: Order Comment: Speci men Type: BLOOD SPECIMEN [facility] Address: [address] [place] [address] Performed By: #### 2 532-0, 3084-1, 2777-1, 55254-8 #### [facility] CLIA [id number] [address] [place] [address] 66142 Immature granulocytes/100 WBC (Bld) 0.2 % Normal [facility] Comment on above: Order Comment: Speci men Type: BLOOD SPECIMEN [facility] Address: [place] [address] Performed By: #### 2 532-0, 3084-1, 2776-, #### [facility] CLIA [id number] [address] [place] [address] 06250 Lymphocytes (Bld) [#/Vol] 2.46 10*3/uL Normal 1.00-4.00 [facility] Comment on above: Order Comment: Speci men Type: BLOOD SPECIMEN [facility] Address: [address] [place] [address] Performed By: #### 2 532-0, 3084-1, 2776-03, #### [facility] CLIA [id number] [address] [place] [address] 40380 Lymphocytes/100 WBC (Bld) 40.9 % Normal [facility] Comment on above: Order Comment: Speci men Type: BLOOD SPECIMEN [facility] Address: [address] [place] [address] Performed By: #### 2 532-0, 3084-1, 2776-03, #### [facility] CLIA [id number] [address] [place] [address] 64328 MCH (RBC) [Entitic mass] 30.3 pg Normal 26.0-34.0 [facility] Comment on above: Order Comment: Speci men Type: BLOOD SPECIMEN [facility] Address: [address] [place] [address] Performed By: #### 2 532-0, 308-1, 2776-03, #### [facility] CLIA [id number] [address] [place] [address] 53786 MCHC (RBC) [Mass/Vol] 34.7 g/dL Normal 30.5-36.0 [facility] Comment on above: Order Comment: Speci men Type: BLOOD SPECIMEN [facility] Address: [address] [address] Performed By: #### 2 532-0, 3084-1, 2776-03, #### [facility] CLIA [id number] [address] [place] [address] 12537 MCV (RBC) [Entitic vol] 87.2 fL Normal 80.0-100.0 [facility] Comment on above: Order Comment: Speci men Type: BLOOD SPECIMEN [facility] Address: [address] [place] [address] Performed By: #### 2 532-0, 308-1, 2776-03, #### [facility] CLIA [id number] [address] [place] [address] 36343 Monocytes (Bld) [#/Vol] 0.44 10*3/uL Normal <0.87 [facility] Comment on above: Order Comment: Speci men Type: BLOOD SPECIMEN [facility] Address: [address] [place] [address] Performed By: #### 2 532-0, 3083-1, 2776-03, #### [facility] CLIA [id number] [address] [place] [address] 26668 Monocytes/100 WBC (Bld) 7.3 % Normal [facility] Comment on above: Order Comment: Speci men Type: BLOOD SPECIMEN [facility] Address: [address] Performed By: #### 2 532-0, 1, 2776-03, #### [facility] CLIA [id number] [address] [place] [address] 74101 Neutrophils (Bld) [#/Vol] 2.96 10*3/uL Normal 1.45-7.50 [facility] Comment on above: Order Comment: Speci men Type: BLOOD SPECIMEN [facility] Address: [address] Performed By: #### 2 532-0, 3084-1, 2776-, #### [facility] CLIA [id number] [address] [place] [address] 12750 Neutrophils/100 WBC (Bld) 49.3 % Normal [facility] Comment on above: Order Comment: Speci men Type: BLOOD SPECIMEN [facility] Address: [address] Performed By: #### 2 532-0, 3084-1, 2776-, #### [facility] CLIA [id number] [address] [place] [address] 93381 Nucleated RBC (Bld) [#/Vol] 10*3/uL Normal <0.01 [facility] Comment on above: Order Comment: Speci men Type: BLOOD SPECIMEN [facility] Address: [address] Performed By: #### 2 532-0, 3084-1, 2776-, #### [facility] CLIA [id number] [address] [place] [address] 68529 Nucleated RBC/100 WBC (Bld) [Ratio] 0.0 /100 WBC Normal [facility] Comment on above: Order Comment: Speci men Type: BLOOD SPECIMEN [facility] Address: [address] Performed By: #### 2 532-0, 3084-1, 2776-03, #### [facility] CLIA [id number] [address] [place] [address] 42536 Platelet mean volume (Bld) [Entitic vol] 9.3 fL Normal 9.0-12.7 [facility] Comment on above: Order Comment: Speci men Type: BLOOD SPECIMEN [facility] Address: [address] [place], [place] [address] Performed By: #### 2 532-0, 3084-1, 2777-1, 28506-6 #### [facility] CLIA [id number] [address] [place] [address] 71122 Platelets (Bld) [#/Vol] 145 10*3/uL Low 150-400 [facility] Comment on above: Order Comment: Speci men Type: BLOOD SPECIMEN [facility] Address: [address] [place] [address] Performed By: #### 2 532-0, 3084-1, 2777-1, 47324-2 #### [facility] CLIA [id number] [address] [place] [address] 37412 RBC (Bld) [#/Vol] 4.46 10*6/uL Normal 4.20-6.00 [facility] Comment on above: Order Comment: Speci men Type: BLOOD SPECIMEN [facility] Address: [address] [place] [address] Performed By: #### 2 532-0, 3084-1, 2777-1, 25631-8 #### [facility] CLIA [id number] [address] [place] [address] 07044 WBC (Bld) [#/Vol] 6.01 10*3/uL Normal 3.70-11.00 [facility] Comment on above: Order Comment: Speci men Type: BLOOD SPECIMEN [facility] Address: [address] [place] [address] Performed By: #### 2 532-0, 3084-1, 2777-1, 53382-0 #### [facility] CLIA [id number] [address] [place] [address] 69617 Comprehensive metabolic 2000 panelon 04-23-2023 Albumin [Mass/Vol] 4.5 g/dL Normal 3.9-4.[address] [facility] Comment on above: Order Comment: Speci men Type: BLOOD SPECIMEN [facility] Address: [address] [place] [address] Performed By: #### 2 532-0, 3084-1, 2776-, 14474-3 #### [facility] CLIA [id number] [address] [place] [address] 15021 ALP [Catalytic activity/Vol] 81 U/L Normal 38-113 [facility] Comment on above: Order Comment: Speci men Type: BLOOD SPECIMEN [facility] Address: [address] [address] Performed By: #### 2 532-0, 3084-1, 2776-1, 53767-3 #### [facility] CLIA [id number] [address] [place] [address] 04855 ALT [Catalytic activity/Vol] 9 U/L Low 10-54 [facility] Comment on above: Order Comment: Speci men Type: BLOOD SPECIMEN [facility] Address: [address] [place] [address] Performed By: #### 2 532-0, 3084-1, 2776-, 34748-1 #### [facility] CLIA [id number] [address] [place] [address] 44900 Anion gap [Moles/Vol] 10 mmol/L Normal 9-18 [facility] Comment on above: Order Comment: Speci men Type: BLOOD SPECIMEN [facility] Address: [address] [address] Performed By: #### 2 532-0, 3084-1, 2776-, 86199-0 #### [facility] CLIA [id number] [address] [place] [address] 89089 AST [Catalytic activity/Vol] 16 U/L Normal 14-40 [facility] Comment on above: Order Comment: Speci men Type: BLOOD SPECIMEN [facility] Address: [address] [place] [address] Performed By: #### 2 532-0, 3084-1, 277-, #### [facility] CLIA [id number] [address] [place] [address] Bilirubin [Mass/Vol] 0.6 mg/dL Normal 0.2-1.3 [facility] Comment on above: Order Comment: Speci men Type: BLOOD SPECIMEN [facility] Address: [address] [place] [address] Performed By: #### 2 532-0, 3083-1, 2776-, #### [facility] CLIA [id number] [address] [place] [address] 51915 Calcium [Mass/Vol] 9.2 mg/dL Normal 8.5-10.[address] [facility] Comment on above: Order Comment: Speci men Type: BLOOD SPECIMEN [facility] Address: [address] [place] [address] Performed By: #### 2 532-0, 3083-1, 2776-03, #### [facility] CLIA [id number] [address] [place] [address] 10172 Chloride [Moles/Vol] 104 mmol/L Normal 97-105 [facility] Comment on above: Order Comment: Speci men Type: BLOOD SPECIMEN [facility] Address: [address] [place] [address] Performed By: #### 2 532-0, 3083-1, 2776-03, #### [facility] CLIA [id number] [address] [place] [address] 94491 CO2 [Moles/Vol] 28 mmol/L Normal 22-30 [facility] Comment on above: Order Comment: Speci men Type: BLOOD SPECIMEN [facility] Address: [address] [address] Performed By: #### 2 532-0, 3083-1, 2776-, 13577-1 #### [facility] CLIA [id number] [address] [place] [address] 12525 Creatinine [Mass/Vol] 1.20 mg/dL Normal 0.73-1.22 [facility] Comment on above: Order Comment: Carey nath Type: BLOOD SPECIMEN [facility] Address: [address] [id number] Performed By: #### 2 532-0, 3084-1, 2777-1, 47072-2 #### [facility] CLIA [id number] [address] [place] [address] 02624 Creatinine and Glomerular filtration rate.predicted panel (S/P/Bld) 60 mL/min/1.73m??? Normal >=60 [facility] Comment on above: Order Comment: Carey nath Type: BLOOD SPECIMEN [facility] Address: [address] [place] [address] Result Comment: Roopa mated Glomerular Filtration Rate (eGFR) is calculated using the 2020 CKD-EPI creatinine equation. This equation utilizes serum creatinine, sex, and age as parameters. The creatinine assay has traceable calibration to isotope dilution-mass spectrometry. Refer to KDIGO guidelines for clinical interpretation. In patients with unstable renal function, e.g. those with acute kidney injury, the eGFR may not accurately reflect actual GFR. Performed By: #### 2 532-0, 3084-1, 2777-1, 35356-9 #### [facility] CLIA [id number] [address] [place] [address] 40792 Glucose [Mass/Vol] 90 mg/dL Normal 74-[address] [facility] Comment on above: Order Comment: Carey nath Type: BLOOD SPECIMEN [facility] Address: [address] [place], [place] [phone] Result Comment: The [place] [employer] (ADA) provides guidance for cutoff values for fasting glucose and random glucose. The ADA defines fasting as no caloric intake for at least 8 hours. Fasting plasma glucose results between 100 to 125 mg/dL indicate increased risk for diabetes (prediabetes). Fasting plasma glucose results greater than or equal to 126 mg/dL meet the criteria for diagnosis of diabetes. In the absence of unequivocal hyperglycemia, results should be confirmed by repeat testing. In a patient with classic symptoms of hyperglycemia or hyperglycemic crisis, random plasma glucose results greater than or equal to 200 mg/dL meet the criteria for diagnosis of diabetes. Reference: Standards of Medical Care in Diabetes 2016, [place] [employer] Association. Diabetes Care. 2016.39(Suppl 1). Performed By: #### 2 532-0, 3084-1, 7-1, 57549-7 #### [facility] CLIA [id number] [address] [place] [address] 73213 Potassium [Moles/Vol] 4.0 mmol/L Normal 3.7-5.1 [facility] Comment on above: Order Comment: Speci men Type: BLOOD SPECIMEN [facility] Address: [address] [place], [place] [id number] Performed By: #### 2 532-0, 3084-1, 2776-03, 59221-8 #### [facility] CLIA [id number] [address] [place] [address] 11193 Protein [Mass/Vol] 6.7 g/dL Normal 6.3-8.[address] [facility] Comment on above: Order Comment: Speci men Type: BLOOD SPECIMEN [facility] Address: [address] [place], [place] [id number] Performed By: #### 2 532-0, 3084-1, 2776-, 36555-0 #### [facility] CLIA [id number] [address] [place] [address] 46630 Sodium [Moles/Vol] 142 mmol/L Normal 136-[address] [facility] Comment on above: Order Comment: Speci men Type: BLOOD SPECIMEN [facility] Address: [address] [place] [address] Performed By: #### 2 532-0, 3084-1, 2776-, 51958-6 #### [facility] CLIA [id number] [address] [place] [address] 62823 Urea nitrogen [Mass/Vol] 17 mg/dL Normal 9-24 [facility] Comment on above: Order Comment: Speci men Type: BLOOD SPECIMEN [facility] Address: [address] [place] [address] Performed By: #### 2 532-0, 3084-1, 2777-1, 34532-6 #### [facility] CLIA [id number] [address] [place] [address] 52625 Ferritin SerPl-mCncon 2023 Ferritin [Mass/Vol] 279.0 ng/mL Normal 30.3-565.7 [facility] Comment on above: Order Comment: Speci men Type: BLOOD SPECIMEN [facility] Address: [address] [place] [address] Performed By: #### 2 532-0, 3084-1, 2776-, 74532-1 #### [facility] CLIA [id number] [address] [place] [address] 35621 Folate SerPl-mCncon 04-23-19 Folate [Mass/Vol] ng/mL Normal >4.7 [facility] Comment on above: Order Comment: Speci men Type: BLOOD SPECIMEN [facility] Address: [address] [place] [address] Result Comment: A re sult of > 20 ng/mL is not necessarily indicative of a pathologic or treatable condition: it reflects a limitation of the test methodology. Assay reference range: 4.8 to 24.2 ng/mL. Suitable for detection of folate deficiency. Reference: Folate III (Folate III) [package insert V 1.0 [place]]. [facility], [place], [place]: January 2015. Performed By: #### 2 532-0, 3084-1, 2777-1, 30153-8 #### [facility] CLIA [id number] [address] [place] [address] 45317 Iron and Iron binding capaci ty panelon 04-23-2023 Iron [Mass/Vol] 72 ug/dL Normal 41-186 [facility] Comment on above: Order Comment: Speci men Type: BLOOD SPECIMEN [facility] Address: [address] [place] [address] Performed By: #### 2 276-4, 20240-8, 8, 2131-11 #### [facility] CLIA [id number] [address] [place] [address] [place] Iron binding capacity [Mass/Vol] 271 ug/dL Normal 232-386 [facility] Comment on above: Order Comment: Speci men Type: BLOOD SPECIMEN [facility] Address: [address] [place] [address] Performed By: #### 2 276-4, 86895-5, 8, 2131-11 #### [facility] CLIA [id number] [address] [place] [address] [place] Iron/TIBC [Molar ratio] 26.6 % Normal 15.0-57.0 [facility] Comment on above: Order Comment: Speci men Type: BLOOD SPECIMEN [facility] Address: [address] [place] [address] Performed By: #### 2 276-4, 24382-3, 2283-10, 2131-11 #### [facility] CLIA [id number] [address] [place], [place] [address] [place] Vit B12 [facility] 024 Cobalamin (Vitamin B12) [Mass/Vol] 442 pg/mL Normal 232-1245 [facility] Comment on above: Order Comment: Speci men Type: BLOOD SPECIMEN [facility] Address: [address] [id number] Performed By: #### 2 532-0, 3084-1, 2777-1, 14324-9 #### [facility] CLIA [id number] [address] [place] [address] 95912 CNNURSEon 10-30-2022 CNNURSE Nurse Visit (HEMASA) NOMI MCKEE ([id number]) 1940 M Date Time Provider Department 10/30/22 3:15 PM LUIS NURSE RAUDEL SCHNEIDER During your visit today, we recorded the following information about you: Livan Yin Ma 10/30/2022 3:33 PM Signed Patient Identification confirmed: yes. Injection given and documented on MAY per provider order. Livan Yin Ma Referring Provider: ZHANG JAEGER [[id number]] Allergies As of Date: 10/30/2022 Noted Allergy Reaction SUCRALFATE 06/21/2018 9 - Itching Date Reviewed: 10/30/2022 Reviewed by: Qing Naqvi - Fully Assessed Primary Visit Diagnosis:Pancytopeni a (HCC) [D61.818] Order(s):[] cyanocobalamin 1,000 mcg injectionDisp: Rfl: Prescriptions as of 10/30/2022 - carvedilol (COREG) 6.25 mg tablet Take by mouth every 12 hours. - folic acid 1 mg tablet Take 1 tablet by mouth once daily. - amitriptyline (ELAVIL) 10 mg tablet TAKE 1 TABLET BY MOUTH EVERYDAY AT BEDTIME - lisinopril (ZESTRIL, PRINIVIL) 5 mg tablet lisinopril 5 mg tablet TAKE 1 TABLET BY MOUTH EVERY DAY - icosapent ethyl (VASCEPA) 1 gram capsule - omeprazole (PRILOSEC) 40 mg capsule Take 1 capsule by mouth once daily. - metoprolol succinate ER (TOPROL XL) 25 mg 24 hr tablet Take 25 mg by mouth once daily. - polyethylene glycol 3350 (MIRALAX, GLYCOLAX) 17 gram/dose powder Use as directed for Miralax / Gatorade Bowel Prep Kit - Gatorade Sports Drink Use as directed for Miralax / Gatorade Bowel Prep Kit - Bisacodyl (DULCOLAX) 5 mg tab Use as directed for Miralax / Gatorade Bowel Prep Kit - ondansetron orally disintegrating (ZOFRAN ODT) 4 mg disintegrating tablet Take 1 tablet by mouth every 8 hours as needed for nausea/vomiting. - levothyroxine (SYNTHROID) 100 mcg tablet - testosterone cypionate (DEPO-TESTOSTERONE) 100 mg/mL injection Inject 100 mg intramuscularly every 2 weeks. - hydrocortisone (CORTEF) 10 mg tablet Take 10 mg by mouth once daily. - amLODIPine (NORVASC) 5 mg tablet Take 5 mg by mouth once daily. - atorvastatin (LIPITOR) 80 mg tablet Take 80 mg by mouth once daily. Problem List As Of Date 10/30/2022 Noted Resolved Hypertension [I10] 04/02/2011 Decreased libido [R68.82] 04/02/2011 Pituitary adenoma [D35.2] 05/21/2011 PVC's (premature ventricular contractions) [I49*02/27/2012 Hyperlipidemia [E78.5] 02/27/2012 Acute recurrent maxillary sinusitis [J01.01] 09/03/2016 Pancytopenia (HCC) [D61.818] 03/31/2018 Thrombocytopenia (HCC) [D69.6] 03/31/2018 Visit Notes: >> Livan Yin Ma Whit Oct 30, 2022 3:32 PM Status: Signed Patient Identification confirmed: yes. Injection given and documented on MAY per provider order. Livan Yin Ma Prescriptions ordered this encounter Disp Refills Start End CYANOCOBALAMIN (VIT B-12) 1,000 MCG/* 10/30/2022 10/30/2022 Route: INTRAMUSCULA Encounter Status:Closed by LIVAN YIN MA on 10/30/22 [facility] CNOVSPon 10-30-2022 CNOVSP Visit (SP) Office ([place]) NOMI MCKEE ([id number]) 1940 M Date Time Provider Department 10/30/22 2:15 PM ZHANG JAEGER During your visit today, we recorded the following information about you: Temperature Pulse Blood pressure Weight 97.7 degrees 67/minute 135/49 80.1 kg Zhang Jaeger MD 10/30/2022 3:01 PM Signed NAME: Nomi Mckee [facility] NO.: [id number] DATE OF SERVICE: October 30, 2022 (Arlene) Some elements in this clinic note that are critical to medical decision making have been carefully reviewed and included from a prior clinic note dated: October 25, 2021 (Arlene) Additional Clinicians involved in Nomi Mckee's care: CC: anemia, thrombocytopenia, MGUS ASSESSMENT: Anemia, thrombocytopenia (stable), slight monoclonal protein (resolved) Work up has been negative - However, his B12 has been on the lower side of normal in the past. Suspect B12 deficiency - and will likely need replacement. Anemia has likely recovered with testosterone replacement which he continues. Interestingly he had undetectable haptoglobin with negative marybel. Maybe mild hemolysis, but this would not explain platelet deficiency. We have been monitoring his disease since 2017. His been M spike seems to have disappeared and maintains no other signs of a paraprotein. Low testosterone 2ndary to adrenal insufficiency and prior pituitary adenoma. Also has low cortisol. 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 PLAN: B12 shot 1000 mcg - IM today and then please do this at Dr. 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 More anemic this time Folate is low and B12 remains on the low side. No M-protein - will stop checking. 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 08/2021 caught COVID while he was in [facility] and was hospitalized. 05/2021 Had EGD / Colonoscopy neg H. Pylori, + hyperplastic colon polyp Labs reviewed and are stable. 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 His Soledad ( 4 years) is baby siting great grandchildren today. Updated Visit, October 05, 2020: GI evaluated - bacterial overgrowth noted. Getting further workup done at [facility] soon. He doesn't think B12 really helped him much. Continue conservative follow up. Has been enjoying traveling and did a riverboat cruise down the [facility]. Updated Visit, March 26, 2020: This is a 79 year old male past medical history includes hyperlipidemia, irritable bowel syndrome, pituitary adenoma, hypertension. Had colonoscopy in 2015. Had EGD that was normal as well in January 2016. He is a former smoker. Presented originally with fatigue. Urinary protein electrophoresis from 10/03/16 shows no M protein. Repeat in November 2016 in August 2017 did not show M spike on protein electrophoresis. Serum protein electrophoresis from 10/03/16 does show an M spike of 0.24. B 12 normal, ferritin 409, iron 79, saturation is good. Normal tsh. In mid 2017 hospitalized for 8 days at [facility] with abdominal pain. He was found to have a bacterial infection. He lost 10 pounds which he is having difficulty gaining back. He was also found to have a low sodium level. He has occasional fatigue. He occasionally feels the need to take naps. He is consuming [address] abd without contrast with no abnormality. Today, he is getting fatigue more often even though he is very active. 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 Last stress test was several years ago - would rec Dr. Díaz consider another cardiac study? REVIEW OF SYSTEMS Per HPI and otherwise negative by full review of organ systems. ECOG PERFORMANCE STATUS: 1 PHYSICAL EXAMINATION: Vitals: BP 135/49 Pulse 67 Temp (Src) 97.7 (Temporal) Wt 176 lb 9.6 oz (80.1kg) SpO2 99% Body surface area is 2.03 meters squared. Exam limited to gross visualization where appropriate. Gen.: This is an age-appropriate patient in no acute distress. Head: Appears atraumatic with no visible lesions. Eyes: Pupils equally round and reactive to light, extraocular muscles are intact. Neck: Supple. Respiratory: Appears to be respiring comfortably. Neurologic: Nonfocal to gross visualization. Alert and oriented ?3. Psychiatric: No evidence of inappropriate anxiety or depression. Skin: Visible areas of skin without rash, lesions, wounds or petechiae. ALLERGIES: ALLERGIES Allergen Reactions Sucralfate Itching MEDICATIONS: carvedilol (COREG) 6.25 mg tablet Take by mouth every 12 hours. lisinopril (ZESTRIL, PRINIVIL) (more content not included)... Normal [facility] B2 Microglob SerPl-mCncon Hmwe-0-Xwcesxxomhufj [Mass/Vol] 2.4 ug/mL Normal <3.1 [facility] Comment on above: Order Comment: Speci men Type: BLOOD SPECIMEN [facility] Address: [address] [place] [address] Result Comment: Beta -2 Microglobulin test is performed using the [employer] immunoturbidimetric method. Results obtained with different methods or kits cannot be used interchangeably. Performed By: #### 2 532-0, 4-1, 2776-03, 61195-6 #### [facility] CLIA [id number] [address] [place], [place] [address] CBC W Auto Differential pane l (Bld)on 10-27-2022 Basophils (Bld) [#/Vol] 0.07 10*3/uL Normal <0.11 [facility] Comment on above: Order Comment: Speci men Type: BLOOD SPECIMEN [facility] Address: [address] [place] [address] Performed By: #### 2 532-0, 3083-1, 2776-03, #### [facility] CLIA [id number] [address] [place] [address] 23251 Basophils/100 WBC (Bld) 1.1 % Normal [facility] Comment on above: Order Comment: Speci men Type: BLOOD SPECIMEN [facility] Address: [address] [place] [address] Performed By: #### 2 532-0, 3083-1, 2776-03, #### [facility] CLIA [id number] [address] [place] [address] 10479 Differential cell count method Nom (Bld) Auto Normal [facility] Comment on above: Order Comment: Speci men Type: BLOOD SPECIMEN [facility] Address: [address] [place] [address] Performed By: #### 2 532-0, 3084-1, 2776-03, #### [facility] CLIA [id number] [address] [place] [address] 98970 Eosinophils (Bld) [#/Vol] 0.17 10*3/uL Normal <0.46 [facility] Comment on above: Order Comment: Speci men Type: BLOOD SPECIMEN [facility] Address: [address] [place] [address] Performed By: #### 2 532-0, 308-1, 2776-03, #### [facility] CLIA [id number] [address] [place] [address] 72619 Eosinophils/100 WBC (Bld) 2.8 % Normal [facility] Comment on above: Order Comment: Speci men Type: BLOOD SPECIMEN [facility] Address: [address] [place] [address] Performed By: #### 2 532-0, 3083-1, 2776-03, #### [facility] CLIA [id number] [address] [place] [address] 55342 Erythrocyte distribution width (RBC) [Ratio] 12.7 % Normal 11.5-15.0 [facility] Comment on above: Order Comment: Speci men Type: BLOOD SPECIMEN [facility] Address: [address] [place] [address] Performed By: #### 2 532-0, 308-1, 2776-03, #### [facility] CLIA [id number] [address] [place] [address] 41972 Hematocrit (Bld) [Volume fraction] 37.4 % Low 39.0-51.0 [facility] Comment on above: Order Comment: Speci men Type: BLOOD SPECIMEN [facility] Address: [address] [id number] Performed By: #### 2 532-0, 3084-1, 2777-1, 38339-8 #### [facility] CLIA [id number] [address] [place] [address] 52616 Hemoglobin (Bld) [Mass/Vol] 12.9 g/dL Low 13.0-17.0 [facility] Comment on above: Order Comment: Speci men Type: BLOOD SPECIMEN [facility] Address: [address] [id number] Performed By: #### 2 532-0, 3084-1, 2777-1, 43897-2 #### [facility] CLIA [id number] [address] [place] [address] 51763 Immature granulocytes (Bld) [#/Vol] 0.03 10*3/uL Normal <0.10 [facility] Comment on above: Order Comment: Speci men Type: BLOOD SPECIMEN [facility] Address: [address] Performed By: #### 2 532-0, 3084-1, 277-, 94873-2 #### [facility] CLIA [id number] [address] [place] [address] 89611 Immature granulocytes/100 WBC (Bld) 0.5 % Normal [facility] Comment on above: Order Comment: Speci men Type: BLOOD SPECIMEN [facility] Address: [address] Performed By: #### 2 532-0, 3084-1, 277-, 04065-8 #### [facility] CLIA [id number] [address] [place] [address] 63332 Lymphocytes (Bld) [#/Vol] 2.66 10*3/uL Normal 1.00-4.00 [facility] Comment on above: Order Comment: Speci men Type: BLOOD SPECIMEN [facility] Address: [address] [place], [place] [id number] Performed By: #### 2 532-0, 3084-1, 7-1, 25029-8 #### [facility] CLIA [id number] [address] [place] [address] 37903 Lymphocytes/100 WBC (Bld) 43.2 % Normal [facility] Comment on above: Order Comment: Speci men Type: BLOOD SPECIMEN [facility] Address: [address] Performed By: #### 2 532-0, 3084-1, 7-1, 81617-7 #### [facility] CLIA [id number] [address] [place] [address] 71352 MCH (RBC) [Entitic mass] 28.8 pg Normal 26.0-34.0 [facility] Comment on above: Order Comment: Speci men Type: BLOOD SPECIMEN [facility] Address: [address] [place] [address] Performed By: #### 2 532-0, 3084-1, 2776-, 30436-7 #### [facility] CLIA [id number] [address] [place] [address] 52487 MCHC (RBC) [Mass/Vol] 34.5 g/dL Normal 30.5-36.0 [facility] Comment on above: Order Comment: Speci men Type: BLOOD SPECIMEN [facility] Address: [address] Performed By: #### 2 532-0, 3084-1, 2777-, 87335-3 #### [facility] CLIA [id number] [address] [place] [address] 39106 MCV (RBC) [Entitic vol] 83.5 fL Normal 80.0-100.0 [facility] Comment on above: Order Comment: Speci men Type: BLOOD SPECIMEN [facility] Address: [address] [place] [address] Performed By: #### 2 532-0, 3084-1, 2776-03, #### [facility] CLIA [id number] [address] [place] [address] 67011 Monocytes (Bld) [#/Vol] 0.47 10*3/uL Normal <0.87 [facility] Comment on above: Order Comment: Speci men Type: BLOOD SPECIMEN [facility] Address: [address] [place] [address] Performed By: #### 2 532-0, 3084-1, 2776-03, #### [facility] CLIA [id number] [address] [place] [address] 12704 Monocytes/100 WBC (Bld) 7.6 % Normal [facility] Comment on above: Order Comment: Speci men Type: BLOOD SPECIMEN [facility] Address: [address] [place] [address] Performed By: #### 2 532-0, 3083-1, 2776-03, #### [facility] CLIA [id number] [address] [place] [address] 23549 Neutrophils (Bld) [#/Vol] 2.76 10*3/uL Normal 1.45-7.50 [facility] Comment on above: Order Comment: Speci men Type: BLOOD SPECIMEN [facility] Address: [address] [place] [address] Performed By: #### 2 532-0, 308-1, 2776-03, #### [facility] CLIA [id number] [address] [place] [address] 42139 Neutrophils/100 WBC (Bld) 44.8 % Normal [facility] Comment on above: Order Comment: Speci men Type: BLOOD SPECIMEN [facility] Address: [address] [place] [address] Performed By: #### 2 532-0, 308-1, 2776-03, #### [facility] CLIA [id number] [address] [place] [address] 27425 Nucleated RBC (Bld) [#/Vol] 10*3/uL Normal <0.01 [facility] Comment on above: Order Comment: Speci men Type: BLOOD SPECIMEN [facility] Address: [address] [address] Performed By: #### 2 532-0, 3084-1, 2776-, 56855-1 #### [facility] CLIA [id number] [address] [place] [address] 79755 Nucleated RBC/100 WBC (Bld) [Ratio] 0.0 /100 WBC Normal [facility] Comment on above: Order Comment: Speci men Type: BLOOD SPECIMEN [facility] Address: [address] [address] Performed By: #### 2 532-0, 3084-1, 2776-, 01492-4 #### [facility] CLIA [id number] [address] [place] [address] 38570 Platelet mean volume (Bld) [Entitic vol] 8.5 fL Low 9.0-12.7 [facility] Comment on above: Order Comment: Speci men Type: BLOOD SPECIMEN [facility] Address: [address] [address] Performed By: #### 2 532-0, 3084-1, 2776-, 77101-1 #### [facility] CLIA [id number] [address] [place] [address] 13504 Platelets (Bld) [#/Vol] 208 10*3/uL Normal 150-400 [facility] Comment on above: Order Comment: Speci men Type: BLOOD SPECIMEN [facility] Address: [address] [address] Performed By: #### 2 532-0, 3084-1, 277-1, 53267-0 #### [facility] CLIA [id number] [address] [place] [address] 13744 RBC (Bld) [#/Vol] 4.48 10*6/uL Normal 4.20-6.00 [facility] Comment on above: Order Comment: Speci men Type: BLOOD SPECIMEN [facility] Address: [address] [place] [address] Performed By: #### 2 532-0, 3084-1, 2777-1, 33125-9 #### [facility] CLIA [id number] [address] [place] [address] 81078 WBC (Bld) [#/Vol] 6.16 10*3/uL Normal 3.70-11.00 [facility] Comment on above: Order Comment: Speci men Type: BLOOD SPECIMEN [facility] Address: [address] [place] [address] Performed By: #### 2 532-0, 3084-1, 2777-1, 07344-2 #### [facility] CLIA [id number] [address] [place] [address] 13829 Calcium.ionized [Moles/Vol]o n 10-27-2022 Calcium.ionized (Bld) [Mass/Vol] 1.21 mmol/L Normal 1.08-1.30 [facility] Comment on above: Order Comment: Speci men Type: BLOOD SPECIMEN [facility] Address: [address] [place], [place] [address] Performed By: #### 1 995-0 #### [facility] CLIA [id number] [address] [address] [address] [place] Calcium.ionized adjusted to pH 7.4 (Bld) [Moles/Vol] 1.16 mmol/L Normal 1.08-1.30 [facility] Comment on above: Order Comment: Speci men Type: BLOOD SPECIMEN [facility] Address: [address] [place] [address] Performed By: #### 1 995-0 #### [facility] CLIA [id number] [address] [id number] [address] [place] Comprehensive metabolic 2000 panelon 10-27-2022 Albumin [Mass/Vol] 4.6 g/dL Normal 3.9-4.[address] [facility] Comment on above: Order Comment: Speci men Type: BLOOD SPECIMEN [facility] Address: [address] [place] [address] Performed By: #### 2 532-0, 3084-1, 2776-, 72083-7 #### [facility] CLIA [id number] [address] [place] [address] 66926 ALP [Catalytic activity/Vol] 84 U/L Normal 38-113 [facility] Comment on above: Order Comment: Speci men Type: BLOOD SPECIMEN [facility] Address: [address] [place] [address] Performed By: #### 2 532-0, 3084-1, 2776-, #### [facility] CLIA [id number] [address] [place] [address] 92267 ALT [Catalytic activity/Vol] 11 U/L Normal 10-54 [facility] Comment on above: Order Comment: Speci men Type: BLOOD SPECIMEN [facility] Address: [address] [address] Performed By: #### 2 532-0, 3084-1, 2776-, 40430-3 #### [facility] CLIA [id number] [address] [place] [address] 47431 Anion gap [Moles/Vol] 9 mmol/L Normal 9-18 [facility] Comment on above: Order Comment: Speci men Type: BLOOD SPECIMEN [facility] Address: [address] [address] Performed By: #### 2 532-0, 3084-1, 2776-1, 55267-3 #### [facility] CLIA [id number] [address] [place] [address] 32337 AST [Catalytic activity/Vol] 17 U/L Normal 14-40 [facility] Comment on above: Order Comment: Speci men Type: BLOOD SPECIMEN [facility] Address: [address] [place] [address] Performed By: #### 2 532-0, 3084-1, 7-1, 65455-9 #### [facility] CLIA [id number] [address] [place] [address] 82850 Bilirubin [Mass/Vol] 0.4 mg/dL Normal 0.2-1.3 [facility] Comment on above: Order Comment: Speci men Type: BLOOD SPECIMEN [facility] Address: [address] [place] [address] Performed By: #### 2 532-0, 3084-1, 2776-, 79921-1 #### [facility] CLIA [id number] [address] [place] [address] 79602 Calcium [Mass/Vol] 8.9 mg/dL Normal 8.5-10.[address] [facility] Comment on above: Order Comment: Speci men Type: BLOOD SPECIMEN [facility] Address: [address] [place] [address] Performed By: #### 2 532-0, 3084-1, 2776-1, 43108-0 #### [facility] CLIA [id number] [address] [place] [address] 50845 Chloride [Moles/Vol] 104 mmol/L Normal 97-105 [facility] Comment on above: Order Comment: Speci men Type: BLOOD SPECIMEN [facility] Address: [address] [place] [address] Performed By: #### 2 532-0, 3084-1, 2776-1, 46177-7 #### [facility] CLIA [id number] [address] [place] [address] 65866 CO2 [Moles/Vol] 25 mmol/L Normal 22-30 [facility] Comment on above: Order Comment: Speci men Type: BLOOD SPECIMEN [facility] Address: [address] [place] [id number] Performed By: #### 2 532-0, 3084-1, 2777-1, 37480-8 #### [facility] CLIA [id number] [address] [place] [address] 71952 Creatinine [Mass/Vol] 1.13 mg/dL Normal 0.73-1.22 [facility] Comment on above: Order Comment: Speci men Type: BLOOD SPECIMEN [facility] Address: [address] [place] [address] Performed By: #### 2 532-0, 3084-1, 2776-, 75657-3 #### [facility] CLIA [id number] [address] [place] [address] 20056 ESTIMATED GLOMERULAR FILTRATION RATE 64 mL/min/1.73m??? Normal >=60 [facility] Comment on above: Order Comment: Speci men Type: BLOOD SPECIMEN [facility] Address: [address] [place] [address] Result Comment: Roopa mated Glomerular Filtration Rate (eGFR) is calculated using the 2020 CKD-EPI creatinine equation. This equation utilizes serum creatinine, sex, and age as parameters. The creatinine assay has traceable calibration to isotope dilution-mass spectrometry. Refer to KDIGO guidelines for clinical interpretation. In patients with unstable renal function, e.g. those with acute kidney injury, the eGFR may not accurately reflect actual GFR. Performed By: #### 2 532-0, 3084-1, 2777-1, 45108-7 #### [facility] CLIA [id number] [address] [place] [address] 25193 Glucose [Mass/Vol] 99 mg/dL Normal 74-[address] [facility] Comment on above: Order Comment: Speci men Type: BLOOD SPECIMEN [facility] Address: [address] Result Comment: The [place] [employer] (ADA) provides guidance for cutoff values for fasting glucose and random glucose. The ADA defines fasting as no caloric intake for at least 8 hours. Fasting plasma glucose results between 100 to 125 mg/dL indicate increased risk for diabetes (prediabetes). Fasting plasma glucose results greater than or equal to 126 mg/dL meet the criteria for diagnosis of diabetes. In the absence of unequivocal hyperglycemia, results should be confirmed by repeat testing. In a patient with classic symptoms of hyperglycemia or hyperglycemic crisis, random plasma glucose results greater than or equal to 200 mg/dL meet the criteria for diagnosis of diabetes. Reference: Standards of Medical Care in Diabetes 2016, [place] [employer] Association. Diabetes Care. 2016.39(Suppl 1). Performed By: #### 2 532-0, 3084-1, 277-, 57501-3 #### [facility] CLIA [id number] [address] [place] [address] 53856 Potassium [Moles/Vol] 3.7 mmol/L Normal 3.7-5.1 [facility] Comment on above: Order Comment: Speci men Type: BLOOD SPECIMEN [facility] Address: [address] [place] [address] Performed By: #### 2 532-0, 3084-1, 2776-03, 14403-4 #### [facility] CLIA [id number] [address] [place] [address] 43252 Protein [Mass/Vol] 6.8 g/dL Normal 6.3-8.[address] [facility] Comment on above: Order Comment: Speci men Type: BLOOD SPECIMEN [facility] Address: [address] [place] [address] Performed By: #### 2 532-0, 3084-1, 277-, 32197-9 #### [facility] CLIA [id number] [address] [place] [address] 31467 Sodium [Moles/Vol] 138 mmol/L Normal 136-[address] [facility] Comment on above: Order Comment: Speci men Type: BLOOD SPECIMEN [facility] Address: [address] [id number] Performed By: #### 2 532-0, 3084-1, 2777-1, 35452-3 #### [facility] CLIA [id number] [address] [place] [address] 58784 Urea nitrogen [Mass/Vol] 15 mg/dL Normal 9-24 [facility] Comment on above: Order Comment: Speci men Type: BLOOD SPECIMEN [facility] Address: [address] Performed By: #### 2 532-0, 3084-1, 2777-1, 35754-0 #### [facility] CLIA [id number] [address] [place] [address] 71357 Ferritin SerPl-mCncon 2022 Ferritin [Mass/Vol] 395.0 ng/mL Normal 30.3-565.7 [facility] Comment on above: Order Comment: Speci men Type: BLOOD SPECIMEN Ordering Facility: [facility] Address: [address] Performed By: #### 2 532-0, 3084-1, 2777-1, 81187-8 #### [facility] CLIA [id number] [address] [place] [address]884 Folate SerPl-mCncon 10-28-19 Folate [Mass/Vol] 6.5 ng/mL Normal >4.7 [facility] Comment on above: Order Comment: Speci men Type: BLOOD SPECIMEN Ordering Facility: [facility] Address: [place] [id number] Performed By: #### 2 885-2, 2132-9, 2284-8 #### [facility] CLIA [id number] [address] [id number] [address] [place] IMMUNOFIXATION SCREEN, SERUM on 10-27-2022 MPA RESULT No M protein is identified. Normal No M protein is identified. [facility] Comment on above: Order Comment: Speci men Type: BLOOD SPECIMEN [facility]ing [facility] Address: [address] [place] [address] Performed By: #### I FES #### [facility] CLIA [id number] [address] [place] [address] STAFF REVIEW (MPA) Reviewed by Jennifer Costa M.D., Ph.D Normal [facility] Comment on above: Order Comment: Speci men Type: BLOOD SPECIMEN [facility] Address: [address] [place] [address] Performed By: #### I [facility] #### [facility] CLIA [id number] [address] [place] [address] OF CHRYSTAL IMMUNOGLOBULINS GAMon 2022 IgA [Mass/Vol] 131 mg/dL Normal 70-400 [facility] Comment on above: Order Comment: Speci men Type: BLOOD SPECIMEN [facility]ing [facility] Address: [address] [place] [address] Performed By: #### 2 532-0, 3084-1, 2777-1, 77221-0 #### [facility] CLIA [id number] [address] [place] [address] 35526 IgG [Mass/Vol] 887 mg/dL Normal 700-1600 [facility] Comment on above: Order Comment: Speci men Type: BLOOD SPECIMEN [facility] Address: [address] [place] [address] Performed By: #### 2 532-0, 3084-1, 2777-1, 28698-2 #### [facility] CLIA [id number] [address] [place] [address]671 IgM [Mass/Vol] 70 mg/dL Normal 40-230 [facility] Comment on above: Order Comment: Speci men Type: BLOOD SPECIMEN [facility] Address: [address] [place] [address] Performed By: #### 2 532-0, 3084-1, 2777-1, 51997-1 #### [facility] CLIA [id number] [address] [place] [address]646 Iron and Iron binding capaci ty panelon 10-27-2022 Iron [Mass/Vol] 77 ug/dL Normal 41-186 [facility] Comment on above: Order Comment: Speci men Type: BLOOD SPECIMEN [facility] Address: [address] [place] [address] Performed By: #### 2 532-0, 3084-1, 2777-1, 84208-0 #### [facility] CLIA [id number] [address] [place] [address] 25012 Iron binding capacity [Mass/Vol] 244 ug/dL Normal 232-386 [facility] Comment on above: Order Comment: Speci men Type: BLOOD SPECIMEN [facility] Address: [address] [place] [address] Performed By: #### 2 532-0, 3084-1, 2777-1, 19776-9 #### [facility] CLIA [id number] [address] [place] [address] 76209 Iron/TIBC [Molar ratio] 31.6 % Normal 15.0-57.0 [facility] Comment on above: Order Comment: Speci men Type: BLOOD SPECIMEN [facility] Address: [address] [place] [address] Performed By: #### 2 532-0, 3084-1, 2777-1, 00189-0 #### [facility] IA [id number] [address] [place] [address] 63927 KAPPA/HAGAN,FREE,SERon 2022 Immunoglobulin light chains.kappa.free (S) [Mass/Vol] 16.9 mg/L Normal 3.3-19.4 [facility] Comment on above: Order Comment: Speci men Type: BLOOD SPECIMEN [facility] Address: [address] [place] [address] Result Comment: Rare ly, increased serum free light chains levels may not be detected or accurately quantified due to prozone phenomenon or in high viscosity samples using this immunoturbidimetric assay. Correlation with other laboratory results and clinical findings is recommended. The Tyhee Free Light Chain was performed using the Binding Site Optilite immunoturbidimetric method. Result obtained with different assay methods or kits cannot be used interchangeably. Performed By: #### 2 532-0, 3084-1, 7-, 95679-5 #### [facility] CLIA [id number] [address] [place] [address] Immunoglobulin light chains.kappa/Immunoglo bulin light chains.lambda (S) [Mass ratio] 0.68 Normal 0.26-1.65 [facility] Comment on above: Order Comment: Speci men Type: BLOOD SPECIMEN [facility] Address: [address] [place] [address] Performed By: #### 2 532-0, 3084-1, 2776-03, 74989-0 #### [facility] CLIA [id number] [address] [place] [address]8888 Immunoglobulin light chains.lambda.free [Mass/Vol] 24.9 mg/L Normal 5.7-26.3 [facility] Comment on above: Order Comment: Speci men Type: BLOOD SPECIMEN [facility] Address: [address] [place] [address] Result Comment: Rare ly, increased serum free light chains levels may not be detected or accurately quantified due to prozone phenomenon or in high viscosity samples using this immunoturbidimetric assay. Correlation with other laboratory results and clinical findings is recommended. The Lambda Free Light Chain was performed using the Binding Site Optilite immunoturbidimetric method. Result obtained with different assay methods or kits cannot be used interchangeably. Performed By: #### 2 532-0, 3084-1, 7-1, 53446-7 #### [facility] CLIA [id number] [address] [place] [address] LDH SerPl-cCncon 08-14-2023 LDH [Catalytic activity/Vol] 181 U/L Normal 135-225 [facility] Comment on above: Order Comment: Speci men Type: BLOOD SPECIMEN [facility] Address: [place] [address] Result Comment: Hemo lysis present. The origin of the hemolysis, in vitro versus an in vivo hemolytic process, cannot be distinguished via this assay alone. In vitro hemolysis may lead to non-physiological (spurious) elevation in lactate dehydrogenase (LDH) results. The result should be interpreted in context of the clinical setting and other test results. Suggest reorder as clinically indicated. Performed By: #### 2 532-0, 3084-1, 277-, 57290-7 #### [facility] CLIA [id number] [address] [place] [address] 91537 PROTEIN ELECTROPHORESIS SERU M (P)on 10-27-2022 Albumin [Mass/Vol] 4.19 g/dL Normal 3.43-5.[address] [facility] Comment on above: Order Comment: Speci men Type: BLOOD SPECIMEN [facility] Address: [place] [address] Performed By: #### 2 532-0, 3084-1, 277-, 79200-1 #### [facility] CLIA [id number] [address] [place] [address] 42416 Alpha 1 globulin Elph [Mass/Vol] 0.25 g/dL Normal 0.18-0.43 [facility] Comment on above: Order Comment: Speci men Type: BLOOD SPECIMEN [facility] Address: [place] [id number] Performed By: #### 2 532-0, 3084-1, 277-, 11696-4 #### [facility] CLIA [id number] [address] [place] [address] 49997 Alpha 2 globulin Elph [Mass/Vol] 0.52 g/dL Normal 0.42-0.98 [facility] Comment on above: Order Comment: Speci men Type: BLOOD SPECIMEN [facility] Address: [address] [place] [address] Performed By: #### 2 532-0, 3084-1, 2776-, #### [facility] CLIA [id number] [address] [place] [address] 90865 Beta globulin Elph [Mass/Vol] 0.64 g/dL Normal 0.61-1.17 [facility] Comment on above: Order Comment: Speci men Type: BLOOD SPECIMEN [facility] Address: [address] [place] [address] Performed By: #### 2 532-0, 3084-1, 2776-03, #### [facility] CLIA [id number] [address] [place] [address] 45798 Gamma globulin Elph [Mass/Vol] 0.70 g/dL Normal 0.53-1.51 [facility] Comment on above: Order Comment: Speci men Type: BLOOD SPECIMEN [facility] Address: [address] [place] [address] Performed By: #### 2 532-0, 308-1, 2776-03, #### [facility] CLIA [id number] [address] [place] [address] 63193 M-PROTEIN LOCATION Normal [facility] Comment on above: Order Comment: Speci men Type: BLOOD SPECIMEN [facility] Address: [address] [place] [address] Result Comment: Not Applicable. Performed By: #### 2 532-0, 3084-1, 2776-03, #### [facility] CLIA [id number] [address] [place] [address] 35453 Protein Fractions [Interp] No definitive M protein is identified on protein electrophoresis. Normal No definitive M protein is identified on protein electrophore sis. [facility] Comment on above: Order Comment: Speci men Type: BLOOD SPECIMEN [facility] Address: [address] [place] [address] Performed By: #### 2 532-0, 3084-1, 277-1, 76450-2 #### [facility] CLIA [id number] [address] [place] [address]188 Protein.monoclonal Elph [Mass/Vol] 0.00 g/dL Normal <=0.00 [facility] Comment on above: Order Comment: Speci men Type: BLOOD SPECIMEN [facility] Address: [address] Performed By: #### 2 532-0, 3084-1, 277-1, 23746-4 #### [facility] CLIA [id number] [address] [place] [address]237 SPE STAFF REVIEW Reviewed by Jennifre Costa M.D., Ph.D [facility] Comment on above: Order Comment: Speci men Type: BLOOD SPECIMEN [facility] Address: [address] [place], [place] [id number] Performed By: #### 2 532-0, 3084-1, 277-1, 73124-5 #### [facility] CLIA [id number] [address] [place] [address] 92911 Phosphate SerPl-mCncon 10-27 Phosphate [Mass/Vol] 3.2 mg/dL Normal 2.7-4.8 [facility] Comment on above: Order Comment: Speci men Type: BLOOD SPECIMEN [facility] Address: [address] [place] [address] Performed By: #### 2 532-0, 3084-1, 277-, 81995-3 #### [facility] CLIA [id number] [address] [place] [address] 80966 Prot SerPl-mCncon 10-27-2022 Protein [Mass/Vol] 6.3 g/dL Normal 6.3-8.[address] [facility] Comment on above: Order Comment: Speci men Type: BLOOD SPECIMEN [facility] Address: [place] [phone] Performed By: #### 2 885-2, 9, 8 #### [facility] CLIA [id number] [facility] [place] [address] [place] Urate [facility] 3 Urate [Mass/Vol] 5.9 mg/dL Normal 4.0-8.1 [facility] Comment on above: Order Comment: Speci men Type: BLOOD SPECIMEN [facility] Address: [place] [address] Performed By: #### 2 532-0, 3084-1, 2777-1, 74099-9 #### [facility] CLIA [id number] [address] [place] [address] Vit B12 [facility] Cobalamin (Vitamin B12) [Mass/Vol] 327 pg/mL Normal 232-1245 [facility] Comment on above: Order Comment: Speci men Type: BLOOD SPECIMEN [facility] Address: [place] [address] Performed By: #### 2 885-2, 9, 2283-10 #### [facility] CLIA [id number] [address] [place] [address] [place] Alanine aminotransferase [En zymatic activity/volume] in Serum or PlasmaOrdered By: PROVIDER TEMP on 10-20-2022 ALT [Catalytic activity/Vol] 11 U/L 7-52 [facility] Albumin [Mass/volume] in Ser um or Plasma by Bromocresol green (BCG) dye binding methoOrdered By: PROVIDER TEMP on 10-20-2022 Albumin BCG dye [Mass/Vol] 4.6 g/dL 3.5-5.7 [facility] Alkaline phosphatase [Enzyma tic activity/volume] in Serum or PlasmaOrdered By: PROVIDER TEMP on 10-20-2022 ALP [Catalytic activity/Vol] 79 U/L 34-104 [facility] Aspartate aminotransferase [ Enzymatic activity/volume] in Serum or PlasmaOrdered By: PROVIDER TEMP on 10-20-2022 AST [Catalytic activity/Vol] 17 U/L 13-39 [facility] B-Type Natriuretic Peptideon 10-20-2022 Natriuretic peptide B (Bld) [Mass/Vol] 14.0 pg/mL Normal 5-100 [facility] Comment on above: Result Comment: PERF ORMED BY: [facility] [address] [place] [address] PATHOLOGIST LINING SETTER CAL SEBASTIAN M.D. Performed By: #### C K, HS TROP, CMP, CBC, BNP #### [address] Basophils Auto (Bld) [#/Vol] Ordered By: PROVIDER TEMP on 10-20-2022 Basophils (Bld) [#/Vol] 0.1 10*3/uL 0.0-0.2 [facility] Basophils/100 WBC Auto (Bld) Ordered By: PROVIDER TEMP on 10-20-2022 Basophils/100 WBC (Bld) 1.2 % . [facility] Bilirubin.total [Mass/volume ] in Serum or PlasmaOrdered By: PROVIDER TEMP on 10-20-2022 Bilirubin [Mass/Vol] 1.0 mg/dL 0.3-1.0 [facility] Calcium [Mass/volume] in Ser um or PlasmaOrdered By: PROVIDER TEMP on 10-20-2022 Calcium [Mass/Vol] 9.3 mg/dL 8.6-10.3 [facility] Carbon dioxide, total [Moles /volume] in Serum or PlasmaOrdered By: PROVIDER TEMP on 10-20-2022 CO2 [Moles/Vol] 27.8 mmol/L 21.0-31.[address] [facility] Chloride [Moles/volume] in S bob or PlasmaOrdered By: PROVIDER TEMP on 10-20-2022 Chloride [Moles/Vol] 105 mmol/L 98-107 [facility] Complete Blood Count Auto Di ffon 10-20-2022 Basophils (Bld) [#/Vol] 0.1 10*3/uL Normal 0.0-0.2 [facility] Comment on above: Result Comment: PERF ORMED BY: [place] [address] PATHOLOGIST LINING SETTER CAL SEBASTIAN M.D. Performed By: #### C K, HS TROP, CMP, CBC, BNP #### [address] Basophils/100 WBC (Bld) 1.2 % Normal . [facility] Comment on above: Performed By: #### C K, HS TROP, CMP, CBC, BNP #### [address] Eosinophils (Bld) [#/Vol] 0.2 10*3/uL Normal 0.0-0.45 [facility] Comment on above: Performed By: #### C K, HS TROP, CMP, CBC, BNP #### [address] Eosinophils/100 WBC (Bld) 3.4 % Normal . [facility] Comment on above: Performed By: #### C K, HS TROP, CMP, CBC, BNP #### [address] Erythrocyte distribution width (RBC) [Ratio] 13.4 % Normal 12.0-14.8 [facility] Comment on above: Performed By: #### C K, HS TROP, CMP, CBC, BNP #### [facility] [address] [place] [address] Hematocrit (Bld) [Volume fraction] 42.0 % Normal 38.8-50.0 [facility] Comment on above: Performed By: #### C K, HS TROP, CMP, CBC, BNP #### [address] Hemoglobin (Bld) [Mass/Vol] 14.4 g/dL Normal 13.0-17.0 [facility] Comment on above: Performed By: #### C K, HS TROP, CMP, CBC, BNP #### [address] Lymphocytes (Bld) [#/Vol] 1.4 10*3/uL Normal 1.00-4.8 [facility] Comment on above: Performed By: #### C K, HS TROP, CMP, CBC, BNP #### [address] Lymphocytes/100 WBC (Bld) 31.8 % Normal . [facility] Comment on above: Performed By: #### C K, HS TROP, CMP, CBC, BNP #### [address] MCH (RBC) [Entitic mass] 28.9 pg Normal 27.5-35.2 [facility] Comment on above: Performed By: #### C K, HS TROP, CMP, CBC, BNP #### [address] MCV (RBC) [Entitic vol] 84.2 fL Normal 83.5-101 [facility] Comment on above: Performed By: #### C K, HS TROP, CMP, CBC, BNP #### [address] Mean Corpuscular HGB Conc 34.4 g/dL Normal 32.5-35.6 [facility] Comment on above: Performed By: #### C K, HS TROP, CMP, CBC, BNP #### [address] Monocytes (Bld) [#/Vol] 0.3 10*3/uL Normal 0.0-0.8 [facility] Comment on above: Performed By: #### C K, HS TROP, CMP, CBC, BNP #### [address] Monocytes/100 WBC (Bld) 18.20 % Normal 0.00-20.00 [facility] Comment on above: Performed By: #### C K, HS TROP, CMP, CBC, BNP #### [facility] [address] Monocytes/100 WBC (Bld) 7.1 % Normal . [facility] Comment on above: Performed By: #### C K, HS TROP, CMP, CBC, BNP #### [address] Neutrophils (Bld) [#/Vol] 2.5 10*3/uL Normal 1.8-7.7 [facility] Comment on above: Performed By: #### C K, HS TROP, CMP, CBC, BNP #### [address] Neutrophils/100 WBC (Bld) 56.5 % Normal . [facility] Comment on above: Performed By: #### C K, HS TROP, CMP, CBC, BNP #### [address] NRBC% 0.4 /100{WBC} Normal 0-0.5 [facility] Comment on above: Performed By: #### C K, HS TROP, CMP, CBC, BNP #### [address] Platelet mean volume (Bld) [Entitic vol] 7.3 fL Normal 6.6-10.1 [facility] Comment on above: Performed By: #### C K, HS TROP, CMP, CBC, BNP #### [place] [address] [place] Platelets (Bld) [#/Vol] 168 10*3/uL Normal 150-450 [facility] Comment on above: Performed By: #### C K, HS TROP, CMP, CBC, BNP #### [place] [address] [place] RBC (Bld) [#/Vol] 4.99 10*6/uL Normal 3.90-5.60 [facility] Comment on above: Performed By: #### C K, HS TROP, CMP, CBC, BNP #### [place] [address] [place] WBC (Bld) [#/Vol] 4.5 10*3/uL Normal 4.1-10.5 [facility] Comment on above: Performed By: #### C K, HS TROP, CMP, CBC, BNP #### [facility] [address] Comprehensive Metabolic Pane ernesto 10-20-2022 Albumin [Mass/Vol] 4.6 g/dL Normal 3.5-5.7 [facility] Comment on above: Performed By: #### C K, HS TROP, CMP, CBC, BNP #### [facility] [address] Albumin/Globulin [Mass ratio] 1.6 {ratio} Normal [facility] Comment on above: Performed By: #### C K, HS TROP, CMP, CBC, BNP #### [facility] [address] ALP [Catalytic activity/Vol] 79 U/L Normal 34-104 [facility] Comment on above: Performed By: #### C K, HS TROP, CMP, CBC, BNP #### [facility] [address] ALT [Catalytic activity/Vol] 11 U/L Normal 7-52 [facility] Comment on above: Performed By: #### C K, HS TROP, CMP, CBC, BNP #### [facility] [address] Anion gap [Moles/Vol] 10.2 mmol/L Normal 6.0-15.0 [facility] Comment on above: Performed By: #### C K, HS TROP, CMP, CBC, BNP #### [facility] [address] [place] [address] [place] AST [Catalytic activity/Vol] 17 U/L Normal 13-39 [facility] Comment on above: Performed By: #### C K, HS TROP, CMP, CBC, BNP #### [facility] [address] Bilirubin [Mass/Vol] 1.0 mg/dL Normal 0.3-1.0 [facility] Comment on above: Performed By: #### C K, HS TROP, CMP, CBC, BNP #### [address] Calcium [Mass/Vol] 9.3 mg/dL Normal 8.6-10.3 [facility] Comment on above: Performed By: #### C K, HS TROP, CMP, CBC, BNP #### [facility] [address] Chloride [Moles/Vol] 105 mmol/L Normal 98-107 [facility] Comment on above: Performed By: #### C K, HS TROP, CMP, CBC, BNP #### [address] CO2 [Moles/Vol] 27.8 mmol/L Normal 21.0-31.[address] [facility] Comment on above: Performed By: #### C K, HS TROP, CMP, CBC, BNP #### [address] Creatinine [Mass/Vol] 1.21 mg/dL Normal 0.70-1.30 [facility] Comment on above: Performed By: #### C K, HS TROP, CMP, CBC, BNP #### [address] Creatinine Clr Calc Pharmacy 50.51 [facility] Comment on above: Result Comment: PERF ORMED BY: [place] [address] PATHOLOGIST LINING SETTER CAL SEBASTIAN M.D. Performed By: #### C K, HS TROP, CMP, CBC, BNP #### [address] GFR/1.73 sq M.predicted MDRD (S/P/Bld) [Vol rate/Area] 59.409 mL/min/{1.73_m2} [facility] Comment on above: Performed By: #### C K, HS TROP, CMP, CBC, BNP #### [place] [address] [place] Globulin (S) [Mass/Vol] 2.9 g/dL Normal [facility] Comment on above: Performed By: #### C K, HS TROP, CMP, CBC, BNP #### [facility] [address] Glucose [Mass/Vol] 105 mg/dL High 70-100 [facility] Comment on above: Result Comment: [facility] Glucose Reference Range is dependent on time and content of last meal. Glucose of more than 200 mg/dL in a nonstressed, ambulatory subject supports the diagnosis of Diabetes Mellitus. ADA recommended reference range Performed By: #### C K, HS TROP, CMP, CBC, BNP #### [address] Potassium [Moles/Vol] 5.0 mmol/L Normal 3.5-5.1 [facility] Comment on above: Performed By: #### C K, HS TROP, CMP, CBC, BNP #### [address] Protein [Mass/Vol] 7.5 g/dL Normal 6.4-8.9 [facility] Comment on above: Performed By: #### C K, HS TROP, CMP, CBC, BNP #### [address] Sodium [Moles/Vol] 138 mmol/L Normal 136-145 [facility] Comment on above: Performed By: #### C K, HS TROP, CMP, CBC, BNP #### [place] [address] [place] Urea nitrogen [Mass/Vol] 16 mg/dL Normal 7-25 [facility] Comment on above: Performed By: #### C K, HS TROP, CMP, CBC, BNP #### [address] Creatine Kinaseon 10-20-2022 CK [Catalytic activity/Vol] 72 U/L Normal 30-223 [facility] Comment on above: Performed By: #### C K, HS TROP, CMP, CBC, BNP #### [facility] [address] [place] [id number] [facility] Creatine kinase [Enzymatic a ctivity/volume] in Serum or PlasmaOrdered By: PROVIDER TEMP on 10-20-2022 CK [Catalytic activity/Vol] 72 U/L 30-223 [facility] Creatinine [Mass/volume] in Serum or PlasmaOrdered By: PROVIDER TEMP on 10-20-2022 Creatinine [Mass/Vol] 1.21 mg/dL 0.70-1.30 [facility] ECG 12 lead ECGon 10-20-2022 ECG 12 lead ECG [facility] [place] [address] [place] [address] Electrocardiograph Report Signed Patient: Nomi Mckee MR#: [id number] 8 : 1940 Acct:[id number] Age/Sex: 81 / M ADM Date: 10/20/22 Loc: ER Room: Type: [facility] ER Attending Dr: Ordering Provider: Gama Weiner DO Date of Service: 10/20/2210/06/1747 ECG/ECG 12 lead ECG: Shortness of Breath/Dyspnea Copies to: Test Reason : Blood Pressure : 127/058 mmHG Vent. Rate : 066 BPM Atrial Rate : 208 BPM P-R Int : 000 ms QRS Dur : 092 ms QT Int : 430 ms P-R-T Axes : 063 -60 -05 degrees QTc Int : 450 ms Atrial flutter with 3:1 AV conduction Incomplete right bundle branch block Left anterior fascicular block Possible Lateral infarct , age undetermined Abnormal ECG No previous ECGs available Confirmed by Gama Weiner DO ([id number]) on 10/21/2022 1:49:10 AM Referred By: Electronically Signed By:Gama Weiner DO Transcribed By: MUS Signed By Gama Weiner DO 3 0149 Normal [facility] Eosinophils Auto (Bld) [#/Vo l]Ordered By: PROVIDER TEMP on 10-20-2022 Eosinophils (Bld) [#/Vol] 0.2 10*3/uL 0.0-0.45 [facility] Eosinophils/100 WBC Auto (Bl d)Ordered By: PROVIDER TEMP on 10-20-2022 Eosinophils/100 WBC (Bld) 3.4 % . [facility] Erythrocyte distribution wid th Auto (RBC) [Ratio]Ordered By: PROVIDER TEMP on 10-20-2022 Erythrocyte distribution width (RBC) [Ratio] 13.4 % 12.0-14.8 [facility] Globulin Calc (S) [Mass/Vol] Ordered By: PROVIDER TEMP on 10-20-2022 Globulin (S) [Mass/Vol] 2.9 g/dL [facility] Glucose [Mass/volume] in Ser um or PlasmaOrdered By: PROVIDER TEMP on 10-20-2022 Glucose [Mass/Vol] 105 mg/dL 70-100 [facility] Comment on above: ADA recommended refe rence rangeRandom Glucose Reference Range is dependent on time and content of last meal. Glucose of more than 200 mg/dL in a nonstressed, ambulatory subject supports the diagnosis of Diabetes Mellitus. Hematocrit Auto (Bld) [Volum e fraction]Ordered By: PROVIDER TEMP on 10-20-2022 Hematocrit (Bld) [Volume fraction] 42.0 % 38.8-50.0 [facility] Hemoglobin [Mass/volume] in BloodOrdered By: PROVIDER TEMP on 10-20-2022 Hemoglobin (Bld) [Mass/Vol] 14.4 g/dL 13.0-17.0 [facility] Leukocytes [#/volume] correc allison for nucleated erythrocytes in Blood by Automated counOrdered By: PROVIDER TEMP on 10-20-2022 WBC corrected for nucl RBC Auto (Bld) [#/Vol] 4.5 10*3/uL 4.1-10.5 [facility] Lymphocytes Auto (Bld) [#/Vo l]Ordered By: PROVIDER TEMP on 10-20-2022 Lymphocytes (Bld) [#/Vol] 1.4 10*3/uL 1.00-4.8 [facility] Lymphocytes/100 WBC Auto (Bl d)Ordered By: PROVIDER TEMP on 10-20-2022 Lymphocytes/100 WBC (Bld) 31.8 % . [facility] MCH Auto (RBC) [Entitic mass ]Ordered By: PROVIDER TEMP on 10-20-2022 MCH (RBC) [Entitic mass] 28.9 pg 27.5-35.2 [facility] MCHC Auto (RBC) [Mass/Vol]Or dered By: PROVIDER TEMP on 10-20-2022 MCHC (RBC) [Mass/Vol] 34.4 g/dL 32.5-35.6 [facility] MCV Auto (RBC) [Entitic vol] Ordered By: PROVIDER TEMP on 10-20-2022 MCV (RBC) [Entitic vol] 84.2 fL 83.5-101 [facility] Monocyte distribution width [Entitic volume] in Blood by AutomatedOrdered By: PROVIDER TEMP on 10-20-2022 Monocyte distribution width Auto (Bld) [Entitic vol] 18.20 % 0.00-20.00 [facility] Monocytes Auto (Bld) [#/Vol] Ordered By: PROVIDER TEMP on 10-20-2022 Monocytes (Bld) [#/Vol] 0.3 10*3/uL 0.0-0.8 [facility] Monocytes/100 WBC Auto (Bld) Ordered By: PROVIDER TEMP on 10-20-2022 Monocytes/100 WBC (Bld) 7.1 % . [facility] Natriuretic peptide B [Mass/ Vol]Ordered By: PROVIDER TEMP on 10-20-2022 Natriuretic peptide B (Bld) [Mass/Vol] 14.0 pg/mL 5-100 [facility] Neutrophils Auto (Bld) [#/Vo l]Ordered By: PROVIDER TEMP on 10-20-2022 Neutrophils (Bld) [#/Vol] 2.5 10*3/uL 1.8-7.7 [facility] Neutrophils/100 WBC Auto (Bl d)Ordered By: PROVIDER TEMP on 10-20-2022 Neutrophils/100 WBC (Bld) 56.5 % . [facility] No Panel InformationOrdered By: PROVIDER TEMP on 10-20-2022 Estimated GFR (CKD-EPI) 59.409 mL/Min [facility] Creatinine Clearance (Chem 50.51 [facility] Nucleated erythrocytes [Pres ence] in Blood by Automated countOrdered By: PROVIDER TEMP on 10-20-2022 Nucleated RBC Auto Ql (Bld) 0.4 /100{WBC} 0-0.5 [facility] Platelet mean volume Auto (B ld) [Entitic vol]Ordered By: PROVIDER TEMP on 10-20-2022 Platelet mean volume (Bld) [Entitic vol] 7.3 fL 6.6-10.1 [facility] Platelets Auto (Bld) [#/Vol] Ordered By: PROVIDER TEMP on 10-20-2022 Platelets (Bld) [#/Vol] 168 10*3/uL 150-450 [facility] Potassium [Moles/volume] in Serum or PlasmaOrdered By: PROVIDER TEMP on 10-20-2022 Potassium [Moles/Vol] 5.0 mmol/L 3.5-5.1 [facility] Protein [Mass/volume] in Ser um or PlasmaOrdered By: PROVIDER TEMP on 10-20-2022 Protein [Mass/Vol] 7.5 g/dL 6.4-8.9 [facility] RBC Auto (Bld) [#/Vol]Ordere d By: PROVIDER TEMP on 10-20-2022 RBC (Bld) [#/Vol] 4.99 10*6/uL 3.90-5.60 [facility] Serum or plasma albumin/glob ulin mass ratioOrdered By: PROVIDER TEMP on 10-20-2022 Albumin/Globulin [Mass ratio] 1.6 {ratio} [facility] Serum or plasma anion gap de terminationOrdered By: PROVIDER TEMP on 10-20-2022 Anion gap [Moles/Vol] 10.2 mmol/L 6.0-15.0 [facility] Sodium [Moles/volume] in Ser um or PlasmaOrdered By: PROVIDER TEMP on 10-20-2022 Sodium [Moles/Vol] 138 mmol/L 136-145 [facility] Troponin I High Sensitivityo n 10-20-2022 Troponin I High Sensitivity 3.1 pg/mL Normal 0.0-20.0 [facility] Comment on above: Result Comment: PERF ORMED BY: [facility] [address] [place] [address] PATHOLOGIST LINING SETTER CAL SEBASTIAN M.D. Performed By: #### C K, HS TROP, CMP, CBC, BNP #### [facility] [address] Troponin I.cardiac [Mass/vol ume] in Serum or Plasma by Detection limit <= 0.01 ng/Ordered By: PROVIDER ALENA on 10-20-2022 Troponin I.cardiac DL <= 0.01 ng/mL [Mass/Vol] 3.1 pg/mL 0.0-20.0 [facility] Urea nitrogen [Mass/volume] in Serum or PlasmaOrdered By: PROVIDER ALENA on 10-20-2022 Urea nitrogen [Mass/Vol] 16 mg/dL 7- [facility] WBC Auto (Bld) [#/Vol]Ordere d By: PROVIDER ALENA on 10-20-2022 WBC (Bld) [#/Vol] 4.5 10*3/uL 4.1-10.5 [facility] XR chest 2V*on 10-20-2022 XR chest 2V* [facility] [place] [address] [place] [address] XRay Report Signed Patient: Nomi Mckee MR#: [id number] 8 : 1940 Acct:[id number] Age/Sex: 81 / M ADM Date: 10/20/22 Loc: ER Room: Type: PRE ER Attending Dr: Copies to: ALENA PROVIDER Ordering Provider: SANPA CARVAJAL Date of Service: 10/20/22 XR/XR chest 2V*: Shortness of Breath/Dyspnea PA AND LATERAL CHEST: CLINICAL HISTORY: Shortest of breath, fatigue and weight loss. Recent COVID. COMPARISON: None Asymmetry at the medial right apex might be osseous or related to scarring. There is no focal parenchymal consolidation, effusion or pneumothorax. The cardiac, hilar and mediastinal silhouettes are within normal limits. There is no vascular congestion. The visualized bony structures are osteopenic. There is slight levoscoliotic curvature and endplate spurring. XR/XR chest 2V* IMPRESSION: NO ACUTE CARDIOPULMONARY ABNORMALITY. Impression dictated by: Carri Alvarado M.D.10/20/2022 2:09 PM Dictation Location: [place] [address] Transcribed By: JAKUB 10/20/22 140 Dictated By: Carri Alvarado MD 10/20/22 1405 Signed By: 10/20/22 140 [facility] VIT B12 AND FOLATEon 023 Cobalamin (Vitamin B12) [Mass/Vol] 249.0 pg/mL Normal 193.0-986.0 [facility] Comment on above: Performed By: #### B UN, CREA #### [facility] [address] [place] [address] Dr. Ilana Garcia FOLATE 8.80 ng/mL Normal 8.60-58.90 [facility] Comment on above: Performed By: #### B UN, CREA #### [facility] [address] [place] [address] Dr. Ilana Garcia BUNon 07-14-2022 Urea nitrogen [Mass/Vol] 14.0 mg/dL Normal 7.0-18.0 [facility] Comment on above: Performed By: #### B UN, CREA #### [facility] [address] [place] [address] Dr. Ilana Garcia CREATININEon 07-14-2022 Creatinine [Mass/Vol] 1.11 mg/dL Normal 0.70-1.30 [facility] Comment on above: Performed By: #### B UN, CREA #### [facility] [address] [place] [address] Dr. Ilana Garcia EGFR-AF BHUTANESE >60 Normal >=60 [facility] Comment on above: Performed By: #### B UN, CREA #### [facility] [address] [place] [address] Dr. Ilana Garcia EGFR-NON AF BHUTANESE >60 Normal >=60 [facility] Comment on above: Performed By: #### B UN, CREA #### [facility] [address] [place] [address] HEAD WO W CONon 3 CT HEAD WO W CON EXAMINATION: CT HEAD WO W CON HISTORY: Consciousness and/or awareness finding COMPARISON: No relevant comparison available. TECHNIQUE: Axial CT images were obtained without IV contrast. Dose reduction techniques were achieved by using automated exposure control and/or adjustment of mA and/or kV according to patient size and/or use of iterative reconstruction technique. FINDINGS: BRAIN: No edema, hemorrhage, mass, acute infarction, or inappropriate atrophy. CSF SPACES: No hydrocephalus, subarachnoid hemorrhage, or mass. Appropriate for age. SKULL: No fracture, mass, or other significant visible lesion. SINUSES: No significant mucosal thickening or fluid on the limited views. ORBITS: No appreciable abnormality on the limited views. OTHER: Negative IMPRESSION: 1. No intracranial hemorrhage, mass, or suspicious findings to account for patient's symptoms. 2. Age consistent mild atrophy. Electronically authenticated by: GALE RICHTER Date: 2022-07-14 10:35 Normal [facility]20[facility] NOMI MCKEE ([id number]) 1940 M Date Time Provider Department 05/12/22 NAWAF GUTHRIE During your visit today, we recorded the following information about you: Nawaf Guthrie RN 05/12/2022 10:01 AM Signed Received call from pt stating he is scheduled for labs in October but is not feeling well, nausea and shaky , and would like to have labs checked sooner. BETTY: Ok to have labs sooner? Please place orders for needed labs. ANDREWS Rondon MD 05/12/2022 4:50 PM Signed Sure - labs ordered - please draw and have him see me 1 week after. Sure it's not more to do with the pituitary adenoma? He might need to go back to NeuroSurg or endocrin... Nawaf Guthrie RN 05/13/2022 8:45 AM Signed PSS: Please have pt come in for labs and then schedule him to see BETTY in one week. Thank you. ANDREWS Rondon [facility] 05/13/2022 8:50 AM Signed Called patient he stated he does not want to come in now he will keep his apppointment in october Allergies As of Date: 05/12/2022 Noted Allergy Reaction SUCRALFATE 06/21/2018 9 - Itching Date Reviewed: 03/03/2022 Reviewed by: Albina Causey LPN - Fully Assessed Reason for Visit: Patient Question [1477] Primary Visit Diagnosis:Anemia due to vitamin B12 deficiency, unspecified B12 deficiency type [D51.9] Other Visit Diagnosis:MGUS (monoclonal gammopathy of unknown significance) [D47.2] Order(s):IRON + TIBC [SQIRON] Order #: [id number] FUTURE FERRITIN BLD [SQFERR] Order #: [id number] FUTURE VITAMIN B12 BLOOD [SQB12] Order #: [id number] FUTURE FOLATE SERUM [SQSERFOL] Order #: [id number] FUTURE B2 MICROGLOBULIN B [SQB2M] Order #: [id number] FUTURE CBC + DIFF [SQCBCDIF] Order #: [id number] FUTURE COMP METABOLIC PANEL [SQCMP] Order #: [id number] FUTURE LD LACTATE DEHYDRO [SQLD6] Order #: [id number] FUTURE PHOSPHORUS INORGANIC [SQPHOS] Order #: [id number] FUTURE PROTEIN ELECTROPHORESIS SERUM W/INTERP [SQSEPG] Order #: [id number] FUTURE MONOCLONAL PROTEIN, SERUM (BLOOD) [SQSERMPA] Order #: [id number] FUTURE URIC ACID BLOOD [SQURIC] Order #: [id number] FUTURE CALCIUM IONIZED BLOOD [SQICA] Order #: [id number] FUTURE KAPPA/HAGAN,FREE,SER [SQKLFRS] Order #: [id number] FUTURE Prescriptions as of 05/13/2022 - amitriptyline (ELAVIL) 10 mg tablet TAKE 1 TABLET BY MOUTH EVERYDAY AT BEDTIME - lisinopril (ZESTRIL, PRINIVIL) 5 mg tablet lisinopril 5 mg tablet TAKE 1 TABLET BY MOUTH EVERY DAY - icosapent ethyl (VASCEPA) 1 gram capsule Vascepa 1 gram capsule TAKE 2 CAPSULES BY MOUTH TWICE A DAY - omeprazole (PRILOSEC) 40 mg capsule Take 1 capsule by mouth once daily. - metoprolol succinate ER (TOPROL XL) 25 mg 24 hr tablet Take 25 mg by mouth once daily. - polyethylene glycol 3350 (MIRALAX, GLYCOLAX) 17 gram/dose powder Use as directed for Miralax / Gatorade Bowel Prep Kit - Gatorade Sports Drink Use as directed for Miralax / Gatorade Bowel Prep Kit - Bisacodyl (DULCOLAX) 5 mg tab Use as directed for Miralax / Gatorade Bowel Prep Kit - ondansetron orally disintegrating (ZOFRAN ODT) 4 mg disintegrating tablet Take 1 tablet by mouth every 8 hours as needed for nausea/vomiting. - levothyroxine (SYNTHROID) 100 mcg tablet - testosterone cypionate (DEPO-TESTOSTERONE) 100 mg/mL injection Inject 100 mg intramuscularly every 2 weeks. - hydrocortisone (CORTEF) 10 mg tablet Take 10 mg by mouth once daily. - amLODIPine (NORVASC) 5 mg tablet Take 5 mg by mouth once daily. - atorvastatin (LIPITOR) 80 mg tablet Take 80 mg by mouth once daily. Problem List As Of Date 05/12/2022 Noted Resolved Hypertension [I10] 04/02/2011 Decreased libido [R68.82] 04/02/2011 Pituitary adenoma [D35.2] 05/21/2011 PVC's (premature ventricular contractions) [I49*02/27/2012 Hyperlipidemia [E78.5] 02/27/2012 Acute recurrent maxillary sinusitis [J01.01] 09/03/2016 Anemia [D64.9] 03/31/2018 Thrombocytopenia (HCC) [D69.6] 03/31/2018 Encounter Status:Closed by NAWAF GUTHRIE on 05/13/22 Normal [facility] CBC AUTO DIFFon 04-08-2022 BASO # 0.1 103/ul Normal 0.0-0.1 [facility] Comment on above: Performed By: #### C BC #### [facility] [address] [place] [address] [address] Ilana Garcia Basophils/100 WBC (Bld) 0.9 % Normal 0.2-2.[address] [facility] Comment on above: Performed By: #### C BC #### [facility] [address] [place] [address] [address] Ilana Garcia EO # 0.1 103/ul Normal 0.0-0.7 [facility] Comment on above: Performed By: #### C BC #### [facility] [address] [place] [address] Dr. Ilana Garcia Eosinophils/100 WBC (Bld) 1.4 % Normal 0.9-7.0 [facility] Comment on above: Performed By: #### C BC #### [facility] [address] [place] [address] Dr. Ilana Garcia Erythrocyte distribution width (RBC) [Ratio] 13.5 % Normal 11.0-15.0 [facility] Comment on above: Performed By: #### C BC #### [facility] [address] [place] [address] Dr. Ilana Garcia Hematocrit (Bld) [Volume fraction] 39.4 % Critically low 42.0-54.0 [facility] Comment on above: Performed By: #### C BC #### [facility] [address] [place] [address] Dr. Ilana Garcia Hemoglobin (Bld) [Mass/Vol] 13.4 g/dL Critically low 14.0-18.0 [facility] Comment on above: Performed By: #### C BC #### [facility] [address] [place] [address] Dr. Ilana Garcia IG # 0.01 10e3/ul Normal 0.00-0.03 [facility] Comment on above: Performed By: #### C BC #### [facility] [address] [place] [address] Dr. Ilaan Garcia IG % 0.2 % Normal 0.0-0.5 [facility] Comment on above: Performed By: #### C BC #### [facility] [address] [place] [address] Dr. Ilana Garcia LYMPH # 2.2 103/ul Normal 1.2-3.[address] [facility] Comment on above: Performed By: #### C BC #### [facility] [address] [place] [address] Dr. Ilana Garcia Lymphocytes/100 WBC (Bld) 37.7 % Normal 20.5-60.0 [facility] Comment on above: Performed By: #### C BC #### [facility] [address] [place] [address] Dr. Ilana Garcia MANUAL DIFF REQ NO Normal [facility] Comment on above: Performed By: #### C BC #### [facility] [address] [place] [address] Dr. Ilana Garcia MCH (RBC) [Entitic mass] 29.0 pg Normal 25.9-34.0 [facility] Comment on above: Performed By: #### C BC #### [facility] [address] [place] [address] Dr. Ilana Garcia MCHC (RBC) [Mass/Vol] 34.0 g/dL Normal 29.9-35.2 [facility] Comment on above: Performed By: #### C BC #### [facility] [address] [place] [address] Dr. Ilana Garcia MCV (RBC) [Entitic vol] 85.3 fL Normal 80.0-94.0 [facility] Comment on above: Performed By: #### C BC #### [facility] [address] [place] [address] Dr. Ilana Garcia MONO # 0.4 103/ul Normal 0.3-0.8 [facility] Comment on above: Performed By: #### C BC #### [facility] [address] [place] [address] Dr. Ilana Garcia Monocytes/100 WBC (Bld) 6.8 % Normal 1.7-12.0 [facility] Comment on above: Performed By: #### C BC #### [facility] [address] [place] [address] Dr. Ilana Garcia NEUT # 3.1 103/ul Normal 1.4-6.[address] [facility] Comment on above: Performed By: #### C BC #### [facility] [address] [place] [address] Dr. Ilana Garcia Neutrophils/100 WBC (Bld) 53.0 % Normal 43.0-75.0 [facility] Comment on above: Performed By: #### C BC #### [facility] [address] [place] [address] [address] Ilana Garcia Platelet mean volume (Bld) [Entitic vol] 8.9 fL Critically low 9.5-13.5 [facility] Comment on above: Performed By: #### C BC #### [facility] [address] [place] [address] [address] Ilaan Garcia PLT 156 103/ul Normal 150-[address] [facility] Comment on above: Performed By: #### C BC #### [facility] [address] [place] [address] [address] Ilana Garcia RBC 4.62 106/ul Critically low 4.70-6.10 [facility] Comment on above: Performed By: #### C BC #### [facility] [address] [place] [address] Dr. Ilana Garcia WBC 5.8 103/ul Normal 4.0-11.0 [facility] Comment on above: Performed By: #### C BC #### [facility] [address] [place] [address] Dr. Ilana Garcia FREE T4on 04-08-2022 Free T4 [Mass/Vol] 1.01 ng/dL Normal 0.76-1.46 [facility] Comment on above: Performed By: #### F T4 #### [facility] [address] [place] [address] Dr. Ilana Garcia PROF 14(COMP METB)on 023 Albumin [Mass/Vol] 3.9 g/dL Normal 3.4-5.0 [facility] Comment on above: Performed By: #### T SH, CMP #### [facility] [address] [place] [address] Dr. Ilana Garcia Albumin/Globulin [Mass ratio] 1.3 {ratio} Normal [facility] Comment on above: Performed By: #### T SH, CMP #### [facility] [address] [place] [address] Dr. Ilana Garcia ALP [Catalytic activity/Vol] 94 U/L Normal 46-116 [facility] Comment on above: Performed By: #### T SH, CMP #### [facility] [address] [place] [address] [address] Ilana Garcia ALT [Catalytic activity/Vol] 29 U/L Normal 16-63 [facility] Comment on above: Performed By: #### T SH, CMP #### [facility] [address] [place] [address] [address] Ilana Garcia Anion gap [Moles/Vol] 9.8 mmol/L Normal [facility] Comment on above: Performed By: #### T SH, CMP #### [facility] [address] [place] [address] [address] Ilana Garcia AST [Catalytic activity/Vol] 25 U/L Normal 15-37 [facility] Comment on above: Performed By: #### T SH, CMP #### [facility] [address] [place] [address] [address] Ilana Garcia Bilirubin [Mass/Vol] 1.0 mg/dL Normal 0.2-1.0 [facility] Comment on above: Performed By: #### T SH, CMP #### [facility] [address] [place] [address] [address] Ilana Garcia Calcium [Mass/Vol] 8.5 mg/dL Normal 8.5-10.1 [facility] Comment on above: Performed By: #### T SH, CMP #### [facility] [address] [place] [address] [address] Ilana Garcia Chloride [Moles/Vol] 104 mmol/L Normal 98-107 [facility] Comment on above: Performed By: #### T SH, CMP #### [facility] [address] [place] [address] [address] Ilana Garcia CO2 [Moles/Vol] 30.1 mmol/L Normal 21.0-32.0 [facility] Comment on above: Performed By: #### T SH, CMP #### [facility] [address] [place] [address] [address] Ilana Garcia Creatinine [Mass/Vol] 1.01 mg/dL Normal 0.70-1.30 [facility] Comment on above: Performed By: #### T SH, CMP #### [facility] [address] [place] [address] [address] Ilana Garcia EGFR-AF BHUTANESE >60 Normal >=60 [facility] Comment on above: Performed By: #### T SH, CMP #### [facility] [address] [place] [address] [address] Ilana Garcia EGFR-NON AF BHUTANESE >60 Normal >=60 [facility] Comment on above: Performed By: #### T SH, CMP #### [facility] [address] [place] [address] [address] Ilana Garcia Globulin (S) [Mass/Vol] 3.1 g/dL Normal [facility] Comment on above: Performed By: #### T SH, CMP #### [facility] [address] [place] [address] Dr. Ilana Garcia Glucose [Mass/Vol] 91 mg/dL Normal 74-106 [facility] Comment on above: Performed By: #### T SH, CMP #### [facility] [address] [place] [address] Dr. Ilana Garcia Potassium [Moles/Vol] 3.9 mmol/L Normal 3.5-5.[address] [facility] Comment on above: Performed By: #### T SH, CMP #### [facility] [address] [place] [address] Dr. Ilana Garcia Protein [Mass/Vol] 7.0 g/dL Normal 6.4-8.2 [facility] Comment on above: Performed By: #### T SH, CMP #### [facility] [address] [place] [address] [address] Ilana Garcia Sodium [Moles/Vol] 140 mmol/L Normal 136-145 [facility] Comment on above: Performed By: #### T SH, CMP #### [facility] [address] [place] [address] [address] Ilana Garcia Urea nitrogen [Mass/Vol] 14.0 mg/dL Normal 7.0-18.0 [facility] Comment on above: Performed By: #### T SH, CMP #### [facility] [address] [place] [address] Dr. Ilana Garcia Urea nitrogen/Creatinine [Mass ratio] 13.9 mg/mg Normal [facility] Comment on above: Performed By: #### T SH, CMP #### [facility] [address] [place] [address] Dr. Ilana Garcia TSHon 04-08-2022 TSH 1.247 uIU/mL Normal 0.358-3.740 [facility] Comment on above: Performed By: #### B UN, CREA #### [facility] [address] [place] [address] Dr. Ilana Garcia TESTOSTERONE, TOTALon 2022 Testosterone [Mass/Vol] 864 ng/dL Normal 264-916 [facility] Comment on above: Result Comment: Adul t male reference interval is based on a population of healthy nonobese males (BMI <30) between 19 and 39 years old. link Fox.al. JCEM 2017,102;2878-5018. PMID: [id number]. Performed By: #### T ESTTOT #### [facility] [address] [place] [address] Dr. Ilana Garcia FREE T3on 03-17-2022 FREE T3 1.97 pg/mlL Critically low 2.18-3.98 [facility] Comment on above: Performed By: #### B UN, CREA #### [facility] [address] [place] [address] Dr. Ilana Garcia FREE T4on 03-17-2022 Free T4 [Mass/Vol] 0.79 ng/dL Normal 0.76-1.46 [facility] Comment on above: Performed By: #### B UN, CREA #### [facility] [address] [place] [address] Dr. Ilana Garcia HEMOGLOBINon 03-17-2022 Hemoglobin (Bld) [Mass/Vol] 12.9 g/dL Critically low 14.0-18.0 [facility] Comment on above: Performed By: #### B UN, CREA #### [facility] [address] [place] [address] [address] Ilana Garcia RENAL FUNCTION PANELon 03-17 Albumin [Mass/Vol] 3.8 g/dL Normal 3.4-5.0 [facility] Comment on above: Performed By: #### B UN, CREA #### [facility] Laboratory [address] [place] [address] Dr. Ilana Garcia Calcium [Mass/Vol] 8.2 mg/dL Critically low 8.5-10.1 Th [facility] Comment on above: Performed By: #### B UN, CREA #### [facility] [address] [place] [address] Dr. Ilana Garcia Chloride [Moles/Vol] 105 mmol/L Normal 98-107 [facility] Comment on above: Performed By: #### B UN, CREA #### [facility] [address] [place] [address] Dr. Ilana Garcia CO2 [Moles/Vol] 28.4 mmol/L Normal 21.0-32.0 [facility] Comment on above: Performed By: #### B UN, CREA #### [facility] [address] [place] [address] Dr. Ilana Garcia Creatinine [Mass/Vol] 1.01 mg/dL Normal 0.70-1.30 [facility] Comment on above: Performed By: #### B UN, CREA #### [facility] [address] [place] [address] Dr. Ilana Garcia EGFR-AF BHUTANESE >60 Normal >=60 [facility] Comment on above: Performed By: #### B UN, CREA #### [facility] [address] [place] [address] Dr. Ilana Garcia EGFR-NON AF BHUTANESE >60 Normal >=60 [facility] Comment on above: Performed By: #### B UN, CREA #### [facility] [address] [place] [address] Dr. Ilana Garcia Glucose [Mass/Vol] 68 mg/dL Critically low 74-106 Th [facility] Comment on above: Performed By: #### B UN, CREA #### [facility] [address] [place] [address] Dr. Ilana Garcia Phosphate [Mass/Vol] 3.1 mg/dL Normal 2.6-4.7 [facility] Comment on above: Performed By: #### B UN, CREA #### [facility] [address] [place] [address] Dr. Ilana Garcia Potassium [Moles/Vol] 3.7 mmol/L Normal 3.5-5.1 [facility] Comment on above: Performed By: #### B UN, CREA #### [facility] [address] [place] [address] Dr. Ilana Garcia Sodium [Moles/Vol] 140 mmol/L Normal 136-145 [facility] Comment on above: Performed By: #### B UN, CREA #### [facility] [address] [place] [address] Dr. Ilana Garcia Urea nitrogen [Mass/Vol] 15.0 mg/dL Normal 7.0-18.0 [facility] Comment on above: Performed By: #### B UN, CREA #### [facility] [address] [place] [address] Dr. Ilana Garcia TSHon 03-17-2022 TSH 1.545 uIU/mL Normal 0.358-3.740 [facility] Comment on above: Performed By: #### B UN, CREA #### [facility] [address] [place] [address] Dr. Ilana Garcia VITAMIN D 25 OHon 03-17-2022 VIT D 25-OH 40.3 ng/mL Normal [facility] Comment on above: Performed By: #### B UN, CREA #### [facility] [address] [place] [address] Dr. Ilana Garcia VIT D RANGES SEE BELOW Normal [facility] Comment on above: Result Comment: <20 ng/mL Vit D deficient 20 - <30 ng/mL Vit D insufficient 30 - 100 ng/mL Vit D sufficient >100 ng/mL Potential Toxicity Performed By: #### B UN, CREA #### [facility] [address] [address] [address] Ilana Garcia XR ABDOMEN 2V ROUTINE SUPINE W UPRIGHT/DECUB/CTLon 03-03-2022 [facility] COVID/FLU RT-PCRon SARS-CoV-2 (COVID-19) RNA MELE+probe Ql (Unsp spec) Negative [employer] Other COVID/FLU RT-PCR Negative [employer] [facility] Other LIPID PROFILEon 12-06-2021 CHOL-HDL RATIO NORM SEE BELOW Normal [facility] Comment on above: Result Comment: 3.3 - 4.4 LOW RISK 4.4 - 7.1 AVERAGE RISK 7.1 - 11.0 MODERATE RISK >11.0 HIGH RISK Performed By: #### L IPID, LIVER #### [facility] [address] [address] [address] Ilana Garcia Cholesterol [Mass/Vol] 119 mg/dL Normal <=200 Th [facility] Comment on above: Performed By: #### L IPID, LIVER #### [facility] [address] [address] [address] Ilana Garcia Cholesterol in HDL [Mass/Vol] 35 mg/dL Critically low 40-60 [facility] Comment on above: Performed By: #### L IPID, LIVER #### [facility] [address] [address] [address] Ilana Garcia Cholesterol in LDL [Mass/Vol] 56.8 mg/dL Normal [facility] Comment on above: Performed By: #### L IPID, LIVER #### [facility] [address] [id number] Ilana Garcia Cholesterol.total/Chol esterol in HDL [Mass ratio] 3.4 {ratio} Normal [facility] Comment on above: Performed By: #### L IPID, LIVER #### [facility] [address] [address] [address] Ilana Garcia HDL NORMAL > or = 60 mg/dl - LO W CARDIOVASCULAR RISK <40 mg/dl - HIGH CARDIOVASCULAR RISK Normal [facility] Comment on above: Performed By: #### L IPID, LIVER #### [facility] [address] [place] [address] Dr. Ilana Garcia LDL CALC NORMAL SEE BELOW Normal [facility] Comment on above: Result Comment: <100 mg/dl OPTIMAL 100 - 129 mg/dl NEAR OR ABOVE OPTIMAL 130 - 159 mg/dl BORDERLINE HIGH 160 - 189 mg/dl HIGH >190 mg/dl VERY HIGH Performed By: #### L IPID, LIVER #### [facility] [address] [place] [address] Dr. Ilana Garcia Triglyceride [Mass/Vol] 136 mg/dL Normal <=150 [facility] Comment on above: Performed By: #### L IPID, LIVER #### [facility] [address] [place] [address] Dr. Ilana Garcia VLDL CALC 27.2 mg/dL Normal [facility] Comment on above: Performed By: #### L IPID, LIVER #### [facility] [address] [place] [address] Dr. Ilana Garcia LIVER PROFILEon 12-06-2021 Albumin [Mass/Vol] 4.0 g/dL Normal 3.4-5.0 [facility] Comment on above: Performed By: #### L IPID, LIVER #### [facility] [address] [place] [address] Dr. Ilana Garcia Albumin/Globulin [Mass ratio] 1.4 {ratio} Normal [facility] Comment on above: Performed By: #### L IPID, LIVER #### [facility] [address] [place] [address] Dr. Ilana Garcia ALP [Catalytic activity/Vol] 85 U/L Normal 46-[address] [facility] Comment on above: Performed By: #### L IPID, LIVER #### [facility] [address] [place] [address] Dr. Ilana Garcia ALT [Catalytic activity/Vol] 33 U/L Normal 16-63 [facility] Comment on above: Performed By: #### L IPID, LIVER #### [facility] [address] [address] [address] Ilana Garcia AST [Catalytic activity/Vol] 25 U/L Normal 15-37 [facility] Comment on above: Performed By: #### L IPID, LIVER #### [facility] [address] [address] [address] Ilana Garcia BILI, CONJUGATED 0.2 mg/dL Normal 0.0-0.2 [facility] Comment on above: Performed By: #### L IPID, LIVER #### [facility] [address] [place] [address] Dr. Ilana Garcia Bilirubin [Mass/Vol] 0.8 mg/dL Normal 0.2-1.0 [facility] Comment on above: Performed By: #### L IPID, LIVER #### [facility] [address] [place] [address] Dr. Ilana Garcia Globulin (S) [Mass/Vol] 2.9 g/dL Normal [facility] Comment on above: Performed By: #### L IPID, LIVER #### [facility] [address] [place] [address] Dr. Ilana Garcia Protein [Mass/Vol] 6.9 g/dL Normal 6.4-8.2 [facility] Comment on above: Performed By: #### L IPID, LIVER #### [facility] [address] [place] [address] Dr. Ilana Garcia LIPID PROFILEon 09-18-2021 CHOL-HDL RATIO NORM SEE BELOW Normal [facility] Comment on above: Result Comment: 3.3 - 4.4 LOW RISK 4.4 - 7.1 AVERAGE RISK 7.1 - 11.0 MODERATE RISK >11.0 HIGH RISK Performed By: #### B UN, CREA #### [facility] [address] [place] [address] Dr. Ilana Garcia Cholesterol [Mass/Vol] 226 mg/dL Critically high <=200 [facility] Comment on above: Performed By: #### B UN, CREA #### [facility] [address] [place] [address] Dr. Ilana Garcia Cholesterol in HDL [Mass/Vol] 34 mg/dL Critically low 40-60 [facility] Comment on above: Performed By: #### B UN, CREA #### [facility] [address] [address] [address] Ilana Garcia Cholesterol in LDL [Mass/Vol] 149.6 mg/dL Normal [facility] Comment on above: Performed By: #### B UN, CREA #### [facility] [address] [address] [address] Ilana Garcia Cholesterol.total/Chol esterol in HDL [Mass ratio] 6.6 {ratio} Normal [facility] Comment on above: Performed By: #### B UN, CREA #### [facility] [address] [address] [address] Ilana Garcia HDL NORMAL > or = 60 mg/dl - LO W CARDIOVASCULAR RISK <40 mg/dl - HIGH CARDIOVASCULAR RISK Normal [facility] Comment on above: Performed By: #### B UN, CREA #### [facility] [address] [place] [address] Dr. Ilana Garcia LDL CALC NORMAL SEE BELOW Normal [facility] Comment on above: Result Comment: <100 mg/dl OPTIMAL 100 - 129 mg/dl NEAR OR ABOVE OPTIMAL 130 - 159 mg/dl BORDERLINE HIGH 160 - 189 mg/dl HIGH >190 mg/dl VERY HIGH Performed By: #### B UN, CREA #### [facility] [address] [place] [address] Dr. Ilana Garcia Triglyceride [Mass/Vol] 212 mg/dL Critically high <=[address] [facility] Comment on above: Performed By: #### B UN, CREA #### [facility] [address] [place] [address] Dr. Ilana Garcia VLDL CALC 42.4 mg/dL Normal [facility] Comment on above: Performed By: #### B UN, CREA #### [facility] [address] [place] [address] Dr. Ilana Garcia XR CHEST 2 Von 09-05-2021 XR CHEST 2 V EXAM: CHEST 2 VIEWS HISTORY: Bronchitis TECHNIQUE: PA and lateral views chest. COMPARISON: None. FINDINGS: There is biapical scarring with mild hyperinflation of the lungs. There is no focal lung consolidation, pleural effusion or pneumothorax. There is no peribronchial cuffing. Pulmonary vasculature is within normal limits. There is mild aortic atherosclerosis. Heart size is normal. IMPRESSION: 1. Hyperinflated and clear lungs. Recommend followup imaging if symptoms worsen or persist. Electronically authenticated by: JUANPABLO MCGARRY Date: 2021-09-05 10:[address] [facility] Covid-19 PCR (CVDTBH)on SARS-CoV-2 (COVID-19) RNA MELE+probe Ql (Unsp spec) Not detected Normal NOT DETECTED [facility] Comment on above: Result Comment: When diagnostic testing is negative, the possibility of a false negative should be considered in the context of a patient's recent exposures and the presence of clinical signs and symptoms consistent with SARS-CoV-2. This test is not yet approved or cleared by the [place] FDA. When there are no FDA-approved or cleared tests available, and other criteria are met, FDA can make tests available under an emergency access mechanism called an Emergency Use Authorization (EUA). The EUA for this test is supported by the [place] of Health and Human Service's declaration that circumstances exist to justify the emergency use of in vitro diagnostics for the detection and/or diagnosis of the virus that causes COVID-19. This EUA will remain in effect for the duration of the COVID-19 declaration justifying emergency of IVDs, unless it is terminated or revoked by the FDA (after which the test may no longer be used). Performed By: #### [facility] #### [facility] [address] [address] [address] Ilana Garcia Albumin [Mass/volume] in Ser um or Plasmaon 08-25-2020 Albumin [Mass/Vol] 4.0 g/dL 3.2-5.5 [facility] Blood hemoglobin measurement (mass/volume)on 08-25-2020 Hemoglobin (Bld) [Mass/Vol] 13.9 g/dL 13.0-17.0 [facility] Cholesterol [Mass/volume] in Serum or Plasmaon 08-25-2020 Cholesterol [Mass/Vol] 275 mg/dL 140-200 [facility] Comment on above: Chol less than 200 m g/dl low riskChol 201-239 mg/dl borderline riskChol 240 mg/dl and greater high risk Cholesterol in LDL Calc [Mas s/Vol]on 08-25-2020 Cholesterol in LDL [Mass/Vol] [facility] Comment on above: Test not performed Cholesterol in VLDL Calc [Ma ss/Vol]on 08-25-2020 Cholesterol in VLDL [Mass/Vol] [facility] Comment on above: Test not performed Creatinine and Glomerular fi ltration rate.predicted panel (S/P/Bld)on 08-25-2020 Creatinine [Mass/Vol] 1.11 mg/dL 0.64-1.27 [facility] Erythrocyte distribution wid th Auto (RBC) [Ratio]on 08-25-2020 Erythrocyte distribution width (RBC) [Ratio] 13.8 % 12.0-14.8 [facility] Estimated glomerular filtrat ion rate (GFR) non- Americanon 08-25-2020 GFR/1.73 sq M.predicted among non-blacks MDRD (S/P/Bld) [Vol rate/Area] > 60 mL/Min [facility] Hematocrit Auto (Bld) [Volum e fraction]on 08-25-2020 Hematocrit (Bld) [Volume fraction] 39.3 % 38.8-50.0 [facility] MCH Auto (RBC) [Entitic mass ]on 08-25-2020 MCH (RBC) [Entitic mass] 30.8 pg 27.5-35.2 [facility] MCHC Auto (RBC) [Mass/Vol]on 08-25-2020 MCHC (RBC) [Mass/Vol] 35.5 g/dL 32.5-35.6 [facility] MCV Auto (RBC) [Entitic vol] on 08-25-2020 MCV (RBC) [Entitic vol] 86.7 fL 83.5-101 [facility] No Panel Informationon 08-25 Estimated GFR () > 60 mL/Min [facility] Comment on above: GFR estimated refere nce range: According to KDOQI guidelines, <60 ml/min/1.73m2 is sufficient to diagnose a patient with chronic kidney disease. Pharmacy Creatinine Clearance (Chem N/A [facility] Triglycerides Reflex 574 mg/dL 35-149 [facility] Comment on above: If the triglyceride result is greater than 400, LDLC and related calculations cannot be calculated and resulted.TRIG ATP III CLASSIFICATIONTRIG less than 150 mg/dL NormalTRIG 150-199 mg/dL Borderline highTRIG 200-500 mg/dL High TRIG greater than 500 mg/dL Very highStandard traceable to the Center for Disease Conrtrol and Prevention (CDC) test method. Platelet mean volume Auto (B ld) [Entitic vol]on 08-25-2020 Platelet mean volume (Bld) [Entitic vol] 7.4 fL 6.6-10.1 [facility] Platelets Auto (Bld) [#/Vol] on 08-25-2020 Platelets (Bld) [#/Vol] 189 10*3/uL 150-450 [facility] Protein [Mass/volume] in Ser um or Plasmaon 08-25-2020 Protein [Mass/Vol] 6.5 g/dL 6.1-7.9 [facility] RBC Auto (Bld) [#/Vol]on RBC (Bld) [#/Vol] 4.53 10*6/uL 3.90-5.60 [facility] Serum or plasma alanine martin otransferase measurement without P-5'-P (enzymatic activion 08-25-2020 ALT No additional P-5'-P [Catalytic activity/Vol] 19 U/L 10-60 [facility] Serum or plasma alkaline martha sphatase measurement (enzymatic activity/volume)on 08-25-2020 ALP [Catalytic activity/Vol] 57 U/L 32-92 [facility] Serum or plasma aspartate am inotransferase measurement (enzymatic activity/volume)on 08-25-2020 AST [Catalytic activity/Vol] 21 U/L 10-42 [facility] Serum or plasma calcium shayne urement (mass/volume)on 08-25-2020 Calcium [Mass/Vol] 8.5 mg/dL 8.2-10.2 [facility] Serum or plasma chloride dary surement (moles/volume)on 08-25-2020 Chloride [Moles/Vol] 106 mmol/L 95-114 [facility] Serum or plasma cholesterol in LDL measurement (mass/volume)on 08-25-2020 Cholesterol in LDL [Mass/Vol] 114 mg/dL 0-100 [facility] Comment on above: LDL ATP III CLASSIFI CATIONLDL less than 100 mg/dL OptimalLDL 100-129 mg/dL Near or above optimalLDL 130-159 mg/dL Borderline highLDL 160-189 mg/dL HighLDL greater than 189 mg/dL Very high Serum or plasma glucose shayne urement (mass/volume)on 08-25-2020 Glucose [Mass/Vol] 87 mg/dL 70-100 [facility] Comment on above: ADA recommended refe rence rangeRandom Glucose Reference Range is dependent on time and content of last meal. Glucose of more than 200 mg/dL in a nonstressed, ambulatory subject supports the diagnosis of Diabetes Mellitus. Serum or plasma high density lipoprotein (HDL) cholesterol measurementon 08-25-2020 Cholesterol in HDL [Mass/Vol] 29 mg/dL 29-71 [facility] Comment on above: HDL CHOL ATP-III CLA SSIFICATION Cardiovascular RiskHDL > or equal to 60 mg/dL LOWHDL < 40 mg/dL HIGH Serum or plasma potassium me asurement (moles/volume)on 08-25-2020 Potassium [Moles/Vol] 4.0 mmol/L 3.5-5.1 [facility] Serum or plasma sodium measu rement (moles/volume)on 08-25-2020 Sodium [Moles/Vol] 138 mmol/L 136-146 [facility] Serum or plasma total biliru bin measurement (mass/volume)on 08-25-2020 Bilirubin [Mass/Vol] 0.9 mg/dL 0.3-1.2 [facility] Serum or plasma total carbon dioxide measurement (moles/volume)on 08-25-2020 CO2 [Moles/Vol] 25.4 mmol/L 22.0-30.0 [facility] Serum or plasma total choles terol/high density lipoprotein (HDL) cholesterol mass katiuska 08-25-2020 Cholesterol.total/Chol esterol in HDL [Mass ratio] 9.5 {ratio} [facility] Serum or plasma urea nitroge n measurement (mass/volume)on 08-25-2020 Urea nitrogen [Mass/Vol] 15 mg/dL 9 [facility] WBC Auto (Bld) [#/Vol]on WBC (Bld) [#/Vol] 4.6 10*3/uL 4.1-10.5 [facility] Vital Signs Date Time Vital Sign Value Performing Clinician Facility 05-27-2023 13:49-0400 Body weight 79.52 kg MD Nabil Díaz Work Phone: [facility] 05-27-2023 13:49-0400 Diastolic blood pressure 73 mm[Hg] MD Nabil Díaz Work Phone: [facility] 05-27-2023 13:49-0400 Heart rate 62 /min MD Nabil Díaz Work Phone: [facility] 05-27-2023 13:49-0400 Systolic blood pressure 165 mm[Hg] MD Nabil Díaz Work Phone: [facility] 04-29-2023 14:08-0500 Body height 185.4 cm Zhang Jaeger MD Work Phone: [facility] 04-29-2023 14:08-0500 Body temperature 97.5 [degF] Zhang Jaeger MD Work Phone: [facility] 04-29-2023 14:08-0500 Body weight 78.9 kg Zhang Jaeger MD Work Phone: [facility] 04-29-2023 14:08-0500 Diastolic blood pressure 99 mm[Hg] Zhang Jaeger MD Work Phone: [facility] 04-29-2023 14:08-0500 Heart rate 60 /min Zhang Jaeger MD Work Phone: [facility] 04-29-2023 14:08-0500 Respiratory rate 16 /min Zhang Jaeger MD Work Phone: [facility] 04-29-2023 14:08-0500 SaO2% (BldA) [Mass fraction] 99 % Zhang Jaeger MD Work Phone: [facility] 04-29-2023 14:08-0500 Systolic blood pressure 113 mm[Hg] Zhang Jaeger MD Work Phone: [facility] 03-05-2023 11:45-0500 Body height 180.34 cm [facility] 03-05-2023 11:45-0500 Body weight 78.47 kg [facility] 03-05-2023 11:45-0500 Diastolic blood pressure 70 mm[Hg] [facility] 03-05-2023 11:45-0500 Systolic blood pressure 144 mm[Hg] [facility] 10-30-2022 14:07-0400 Body temperature 97.7 [degF] Zhang Jaeger MD Work Phone: [facility] 10-30-2022 14:07-0400 Body weight 80.11 kg Zhang Jaeger MD Work Phone: [facility] 10-30-2022 14:07-0400 Diastolic blood pressure 49 mm[Hg] Zhang Jaeger MD Work Phone: [facility] 10-30-2022 14:07-0400 Heart rate 67 /min Zhang Jaeger MD Work Phone: [facility] 10-30-2022 14:07-0400 SaO2% (BldA) [Mass fraction] 99 % Zhang Jaeger MD Work Phone: [facility] 10-30-2022 14:07-0400 Systolic blood pressure 135 mm[Hg] Zhang Jaeger MD Work Phone: [facility] 10-20-2022 17:58-0400 Heart rate 66 /min MD Nabil Díaz Work Phone: [facility] 10-20-2022 17:34-0400 Diastolic blood pressure 90 mm[Hg] MD Nabil Díaz Work Phone: [facility] 10-20-2022 17:34-0400 Respiratory rate 18 /min MD Nabil Díaz Work Phone: [facility] 10-20-2022 17:34-0400 SaO2% (BldA) [Mass fraction] 98 % MD Nabil Díaz Work Phone: [facility] 10-20-2022 17:34-0400 Systolic blood pressure 164 mm[Hg] MD Nabil Díaz Work Phone: [facility] 10-20-2022 13:20-0400 Body height 182.88 cm MD Nabil Díaz Work Phone: [facility] 10-20-2022 13:20-0400 Body temperature 98.2 [degF] MD Nabil Díaz Work Phone: [facility] 10-20-2022 13:20-0400 Body weight 77.2 kg MD Nabil Díaz Work Phone: [facility] 04-08-2022 11:15-0500 Body height 180.34 cm Nabil Díaz Other [facility] [employer] Other 04-08-2022 11:15-0500 Body mass index (BMI) [Ratio] 24.68 kg/m2 Nabil Díaz Other [facility] [employer] Other 04-08-2022 11:15-0500 Body weight 80.29 kg Nabil Díaz Other [facility] [employer] Other 04-08-2022 11:15-0500 Diastolic blood pressure 70 mm[Hg] Nabil Díaz Other [facility] [employer] Other 04-08-2022 11:15-0500 SaO2% (BldA) [Mass fraction] 97 % Nabil Díaz Other [employer] Other 04-08-2022 11:15-0500 Systolic blood pressure 136 mm[Hg] Nabil Rashad Other [employer] Other 03-03-2022 08:37-0500 Body weight 78.02 kg Marge Pack VOLUNTEER COORDINATOR.GLOBAL [employer]PPLY CHAIN DIRECTOR Work Phone: [facility] 03-03-2022 08:37-0500 Diastolic blood pressure 77 mm[Hg] Marge Pack VOLUNTEER COORDINATOR.GLOBAL SUPPLY CHAIN DIRECTOR Work Phone: [facility] 03-03-2022 08:37-0500 Heart rate 73 /min Marge Pack VOLUNTEER COORDINATOR.GLOBAL SUPPLY CHAIN DIRECTOR Work Phone: [facility] 03-03-2022 08:37-0500 Systolic blood pressure 135 mm[Hg] Marge Pack VOLUNTEER COORDINATOR.GLOBAL SUPPLY CHAIN DIRECTOR Work Phone: [facility] 02-28-2022 13:30-0500 Body height 182.88 cm Laina Wallis Other [employer] Other 02-28-2022 13:30-0500 Body mass index (BMI) [Ratio] 23.32 kg/m2 Laina Wallis Other [employer] Other 02-28-2022 13:30-0500 Body temperature 97.5 [degF] Laina Wallis Other [employer] Other 02-28-2022 13:30-0500 Body weight 78.02 kg Laina Kadi Other [employer] Other 02-28-2022 13:30-0500 Diastolic blood pressure 68 mm[Hg] Laina Kadi Other [employer] Other 02-28-2022 13:30-0500 Respiratory rate 18 /min Lainabianca Wallis Other [employer] Other 02-28-2022 13:30-0500 SaO2% (BldA) [Mass fraction] 99 % Laina Jimenezmond Other [employer] Other 02-28-2022 13:30-0500 Systolic blood pressure 124 mm[Hg] Laina Jimenezmond Other [employer] Other 10-25-2021 09:57-0400 Body height 185.4 cm Zhang Jaeger MD Work Phone: [facility] [facility] 10-25-2021 09:57-0400 Body temperature 97.3 [degF] Zhang Jaeger MD Work Phone: [facility] 10-25-2021 09:57-0400 Body weight 81.74 kg Zhang Jaeger MD Work Phone: [facility] 10-25-2021 09:57-0400 Diastolic blood pressure 60 mm[Hg] Zhang Jaeger MD Work Phone: [facility] 10-25-2021 09:57-0400 Heart rate 70 /min Zhang Jaeger MD Work Phone: [facility] 10-25-2021 09:57-0400 Respiratory rate 16 /min Zhang Jaeger MD Work Phone: [facility] 10-25-2021 09:57-0400 SaO2% (BldA) [Mass fraction] 99 % Zhang Jaeger MD Work Phone: [facility] 10-25-2021 09:57-0400 Systolic blood pressure 162 mm[Hg] Zhang Jaeger MD Work Phone: [facility] Encounters Encounter Date Encounter Type Care Provider Facility Start: 08-26-2023 End: 08-26-2023 ambulatory MD Nabil Díaz Work Phone: [facility] Work Phone: Start: 08-26-2023 End: 08-26-2023 Patient encounter procedure MD Nabil Díaz Work Phone: [facility] Work Phone: Start: 08-04-2023 End: 08-04-2023 ambulatory MD Nabil Díaz Work Phone: [facility] Work Phone: Start: 08-04-2023 End: 08-04-2023 Patient encounter procedure MD Nabil Díaz Work Phone: [facility] Work Phone: Start: 07-07-2023 End: 07-07-2023 ambulatory MD Nabil Díaz Work Phone: [facility] Work Phone: Start: 07-07-2023 End: 07-07-2023 Patient encounter procedure MD Nabil Díaz Work Phone: [facility] Work Phone: Start: 06-15-2023 End: 06-15-2023 ambulatory MD Nabil Díaz Work Phone: [facility] Work Phone: Start: 06-15-2023 End: 06-15-2023 Patient encounter procedure MD Nabil Díaz Work Phone: [facility] Work Phone: Start: 06-04-2023 End: 06-04-2023 ambulatory Nabil Díaz Facility:[facility] Start: 06-04-2023 End: 06-04-2023 ambulatory MD Nabil Díaz Work Phone: [facility] Work Phone: Start: 06-04-2023 End: 06-04-2023 Patient encounter procedure MD Nabil Díaz Work Phone: [facility] Work Phone: Start: 05-27-2023 End: 05-27-2023 Patient encounter procedure MD Nabil Díaz Work Phone: [facility] Work Phone: Start: 05-25-2023 End: 05-25-2023 Patient encounter procedure MD Nabil Díaz Work Phone: [facility] Work Phone: Start: 05-05-2023 End: 05-05-2023 ambulatory [facility] Work Phone: Start: 05-05-2023 End: 05-05-2023 Patient encounter procedure [facility] Work Phone: Start: 04-29-2023 End: 04-29-2023 ambulatory ZHANG JAEGER Facility:[facility] Start: 04-29-2023 End: 04-29-2023 Office outpatient visit 25 minutes Zhang Jaeger MD Work Phone: Hematology/Oncology Comment on above: Anemia due to vitami n B12 deficiency, unspecified B12 deficiency type (Primary Dx); Thrombocytopenia (HCC); Pancytopenia (HCC) Start: 04-23-2023 End: 04-23-2023 ambulatory NABIL DÍAZ Facility:[facility] Start: 04-08-2023 End: 04-08-2023 ambulatory Nabil Díaz Other [employer] Other Start: 04-08-2023 Nursing evaluation o f patient and report Nabil Díaz [facility] Start: 03-17-2023 End: 03-17-2023 ambulatory Nabil Díaz Other [employer] Other Start: 03-17-2023 Nursing evaluation o f patient and report Nabil Díaz [facility] Start: 03-05-2023 End: 03-05-2023 ambulatory Nabil Díaz Other [employer] Other Start: 03-05-2023 Telephone encounter Nabil Díaz [facility] Start: 03-05-2023 End: 03-05-2023 Patient encounter procedure [facility] Work Phone: Start: 01-27-2023 ambulatory Ishan Sharif Facility[facility] Start: 01-13-2023 End: 01-13-2023 ambulatory Nabil Rashad Other [employer] Other Start: 01-13-2023 Nursing evaluation o f patient and report Nabil Rashad [facility] Start: 12-16-2022 End: 12-16-2022 ambulatory Nabil Rashad Other [employer] Other Start: 12-16-2022 Nursing evaluation o f patient and report Nabil Rashad [facility] Start: 11-19-2022 End: 11-19-2022 ambulatory Nabil Rashad Other [employer] Other Start: 11-19-2022 Nursing evaluation o f patient and report Nabil Díaz [facility] Start: 11-06-2022 End: 11-06-2022 ambulatory Nabil Díaz Other [employer] Other Start: 11-06-2022 Telephone encounter Nabil Rashad [facility] Start: 10-30-2022 End: 10-30-2022 ambulatory ZHANG JAEGER Facility:[facility] Start: 10-30-2022 End: 10-30-2022 Nursing evaluation of patient and report Luis Rodríguez Work Phone: Hematology/Oncology Comment on above: Pancytopenia (HCC) ( Primary Dx) Start: 10-30-2022 End: 10-30-2022 Office outpatient visit 25 minutes Zhang Jaeger MD Work Phone: Hematology/Oncology Comment on above: Anemia due to vitami n B12 deficiency, unspecified B12 deficiency type (Primary Dx); Dietary folate deficiency anemia; Pancytopenia (HCC); Thrombocytopenia (HCC) Start: 10-27-2022 End: 10-27-2022 ambulatory NABIL DÍAZ Facility:[facility] Start: 10-23-2022 End: 10-23-2022 ambulatory Nabil Díaz Other [employer] Other Start: 10-23-2022 Nursing evaluation o f patient and report Nabil Díaz [facility] Start: 10-20-2022 End: 10-20-2022 Emergency department patient visit Nabil Díaz Facility:[facility] Start: 10-20-2022 End: 10-20-2022 Emergency department patient visit MD Nabil Díaz Work Phone: [facility] Work Phone: Start: 10-17-2022 End: 10-17-2022 ambulatory Kevon Lord Other [employer] Other Start: 10-17-2022 Office outpatient visit 15 minutes Kevon Lord [facility] Start: 09-10-2022 End: 09-10-2022 ambulatory Nabil Díaz Other [employer] Other Start: 09-10-2022 Nursing evaluation o f patient and report Nabil Díaz [facility] Start: 08-19-2022 End: 08-19-2022 ambulatory Nabil Díaz Other [employer] Other Start: 08-19-2022 Nursing evaluation o f patient and report Nabil Díaz [facility] Start: 07-28-2022 End: 07-28-2022 ambulatory Nabil Díaz Other [employer] Other Start: 07-28-2022 Nursing evaluation o f patient and report Nabil Díaz [facility] Start: 07-22-2022 End: 07-23-[address] NABIL DÍAZ Facility: Start: 07-14-2022 End: 07-15-[address] NABIL DÍAZ Facility:[facility] Start: 06-19-2022 End: 06-19-2022 ambulatory Nabil Díaz Other [employer] Other Start: 06-19-2022 Telephone encounter Nabil Díaz [facility] Start: 06-06-2022 End: 06-06-2022 ambulatory Nabil Díaz Other [employer] Other Start: 06-06-2022 Nursing evaluation o f patient and report Nabil Díaz [facility] Start: 05-12-2022 End: 05-12-2022 ambulatory Nabil Díaz Other [employer] Other Start: 05-12-2022 Nursing evaluation o f patient and report Nabil Díaz [facility] Start: 05-12-2022 Telephone encounter Nawaf Guthrie RN Hematology/Oncology Comment on above: Patient Question Start: 04-14-2022 End: 04-14-2022 ambulatory Nabil Díaz Other [employer] Other Start: 04-14-2022 Telephone encounter Nabil Díaz [facility] Start: 04-09-2022 End: 04-09-2022 ambulatory Nabil Díaz Other [employer] Other Start: 04-09-2022 Telephone encounter Nabil Díaz [facility] Start: 04-08-2022 Nursing evaluation o f patient and report Nabil Díaz [facility] Start: 04-08-2022 Office outpatient visit 15 minutes Nabil Díaz [facility] Start: 04-08-2022 End: 04-09-[address] NABIL DÍAZ [employer] Other Start: 04-07-2022 End: 04-07-2022 ambulatory Nabil Díaz Other [employer] Other Start: 04-07-2022 Telephone encounter Nabil Díaz [facility] Start: 03-17-2022 End: 03-18-[address] NABIL DÍAZ Facility:[facility] Start: 03-03-2022 End: 03-03-2022 Subsequent hospital visit by physician Xr [facility] General Radiology Comment on above: Chronic diarrhea [K5 2.9] Start: 03-03-2022 End: 03-03-2022 Patient encounter procedure Marge Mendosa APRNForrestGLOBAL SUPPLY CHAIN DIRECTOR Work Phone: Gastroenterology Comment on above: Chronic diarrhea (Pr imary Dx); Nausea Start: 02-28-2022 End: 02-28-2022 ambulatory Laina Wallis Other [employer] Other Start: 02-28-2022 Office outpatient ne w 20 minutes Laina Wallis [facility] Start: 12-06-2021 End: 12-07-[address] NABIL DÍAZ Facility:[facility] Start: 10-25-2021 End: 10-25-2021 ambulatory Zhang Jaeger MD Work Phone: Hematology/Oncology Comment on above: Anemia due to vitami n B12 deficiency, unspecified B12 deficiency type (Primary Dx); Thrombocytopenia (HCC); MGUS (monoclonal gammopathy of unknown significance) Start: 10-25-2021 End: 10-25-2021 Patient encounter procedure Zhang Jaeger MD Work Phone: [place] Start: 10-18-[address] NABIL DÍAZ Facil ity:[facility] Start: 10-15-2021 Telephone encounter Zhang espinoza MD Work Phone: Hematology/Oncology Comment on above: Lab Orders Start: 09-18-2021 End: 09-19-[address] NABIL DÍAZ Facility:[facility] Start: 09-05-2021 End: 09-06-[address] NABIL DÍAZ Facility:[facility] Start: 08-20-2021 End: 08-21-[address] NABIL DÍAZ Facility:[facility] Start: 08-14-[address] NABIL DÍAZ Facil ity:[facility] Start: 08-25-2020 End: 08-25-2020 Departed Referred Nabil Díaz Work Phone: [facility] Start: 11-03-2016 End: 11-04-2016 Ambulatory DEFAULT PHYSICIAN Facility:[facility] Start: 10-07-2016 End: 10-08-2016 Ambulatory DEFAULT PHYSICIAN Facility:[facility] Procedures Date Procedure Procedure Detail Performing Clinician Start: 06-04-2023 Computed tomography of abdomen and pelvis with contrast MD Nabil Díaz Work Phone: Start: 10-20-2022 Plain chest X-ray MD Luis Díaz Work Phone: Start: 03-17-[address] NABIL DÍAZ Comment on above: Performed By: #### B UN, CREA #### [facility] [address] [place] [address] Dr. Ilana Garcia Start: 03-03-2022 Radiologic exam abdo men 2 views Marge Pack VOLUNTEER COORDINATOR.GLOBAL SUPPLY CHAIN DIRECTOR Work Phone: Start: 10-29-2017 Laboratory test resu lt abnormal Kevon Lord Other Screening for malign ant neoplasm of colon Laina Wallis Other Plan of Treatment Date Care Activity Detail Author Start: 04-23-2026 [facility] Start: 10-27-2025 DIABETES SCREEN DIABETES SCREEN [facility] Start: 10-27-2025 Diabetes Screening [facility] Start: 10-25-2024 DIABETES SCREEN DIABETES SCREEN [facility] Start: 10-28-2023 End: 04-29-2024 CBC W Auto Differential panel - Blood CBC + DIFF Lab Routine Anemia due to vitamin B12 deficiency, unspecified B12 deficiency type Thrombocytopenia (HCC) Expected: 10/28/2023 (Approximate), Expires: 04/29/2024 [facility] Work Phone: Comment on above: Expected: 10/28/2023 (Approximate), Expires: 04/29/2024 Start: 10-28-2023 End: 04-29-2024 Cobalamin (Vitamin B12) [Mass/volume] in Serum or Plasma VITAMIN B12 BLOOD Lab Routine Anemia due to vitamin B12 deficiency, unspecified B12 deficiency type Thrombocytopenia (HCC) Expected: 10/28/2023 (Approximate), Expires: 04/29/2024 [facility] Work Phone: Comment on above: Expected: 10/28/2023 (Approximate), Expires: 04/29/2024 Start: 10-28-2023 End: 04-29-2024 Comprehensive metabolic 2000 panel - Serum or Plasma COMP METABOLIC PANEL Lab Routine Anemia due to vitamin B12 deficiency, unspecified B12 deficiency type Thrombocytopenia (HCC) Expected: 10/28/2023 (Approximate), Expires: 04/29/2024 [facility] Work Phone: Comment on above: Expected: 10/28/2023 (Approximate), Expires: 04/29/2024 Start: 10-28-2023 End: 04-29-2024 Ferritin [Mass/volume] in Serum or Plasma FERRITIN BLD Lab Routine Anemia due to vitamin B12 deficiency, unspecified B12 deficiency type Thrombocytopenia (HCC) Expected: 10/28/2023 (Approximate), Expires: 04/29/2024 [facility] Work Phone: Comment on above: Expected: 10/28/2023 (Approximate), Expires: 04/29/2024 Start: 10-28-2023 End: 04-29-2024 Folate [Mass/volume] in Serum or Plasma FOLATE SERUM Lab Routine Anemia due to vitamin B12 deficiency, unspecified B12 deficiency type Thrombocytopenia (HCC) Expected: 10/28/2023 (Approximate), Expires: 04/29/2024 [facility] Work Phone: Comment on above: Expected: 10/28/2023 (Approximate), Expires: 04/29/2024 Start: 10-28-2023 End: 04-29-2024 Iron and Iron binding capacity panel - Serum or Plasma IRON + TIBC Lab Routine Anemia due to vitamin B12 deficiency, unspecified B12 deficiency type Thrombocytopenia (HCC) Expected: 10/28/2023 (Approximate), Expires: 04/29/2024 [facility] Work Phone: Comment on above: Expected: 10/28/2023 (Approximate), Expires: 04/29/2024 Start: 10-06-2023 DIABETES SCREEN DIABETES SCREEN [facility] Start: 05-02-2023 End: 10-31-2023 CBC W Auto Differential panel - Blood CBC + DIFF Lab Routine Anemia due to vitamin B12 deficiency, unspecified B12 deficiency type Dietary folate deficiency anemia Expected: 05/02/2023 (Approximate), Expires: 10/31/2023 [facility] Work Phone: Comment on above: Expected: 05/02/2023 (Approximate), Expires: 10/31/2023 Start: 05-02-2023 End: 10-31-2023 Cobalamin (Vitamin B12) [Mass/volume] in Serum or Plasma VITAMIN B12 BLOOD Lab Routine Anemia due to vitamin B12 deficiency, unspecified B12 deficiency type Dietary folate deficiency anemia Expected: 05/02/2023 (Approximate), Expires: 10/31/2023 [facility] Work Phone: Comment on above: Expected: 05/02/2023 (Approximate), Expires: 10/31/2023 Start: 05-02-2023 End: 10-31-2023 Comprehensive metabolic 2000 panel - Serum or Plasma COMP METABOLIC PANEL Lab Routine Anemia due to vitamin B12 deficiency, unspecified B12 deficiency type Dietary folate deficiency anemia Expected: 05/02/2023 (Approximate), Expires: 10/31/2023 [facility] Work Phone: Comment on above: Expected: 05/02/2023 (Approximate), Expires: 10/31/2023 Start: 05-02-2023 End: 10-31-2023 Ferritin [Mass/volume] in Serum or Plasma FERRITIN BLD Lab Routine Anemia due to vitamin B12 deficiency, unspecified B12 deficiency type Dietary folate deficiency anemia Expected: 05/02/2023 (Approximate), Expires: 10/31/2023 [facility] Work Phone: Comment on above: Expected: 05/02/2023 (Approximate), Expires: 10/31/2023 Start: 05-02-2023 End: 10-31-2023 Folate [Mass/volume] in Serum or Plasma FOLATE SERUM Lab Routine Anemia due to vitamin B12 deficiency, unspecified B12 deficiency type Dietary folate deficiency anemia Expected: 05/02/2023 (Approximate), Expires: 10/31/2023 [facility] Work Phone: Comment on above: Expected: 05/02/2023 (Approximate), Expires: 10/31/2023 Start: 05-02-2023 End: 10-31-2023 Iron and Iron binding capacity panel - Serum or Plasma IRON + TIBC Lab Routine Anemia due to vitamin B12 deficiency, unspecified B12 deficiency type Dietary folate deficiency anemia Expected: 05/02/2023 (Approximate), Expires: 10/31/2023 [facility] Work Phone: Comment on above: Expected: 05/02/2023 (Approximate), Expires: 10/31/2023 Start: 03-16-2023 Advance Directive Discussion Advance Directive Discussion [facility] Start: 03-16-2023 Depression Assessment Depression Ass essment [facility] Start: 11-14-2022 Covid-19 Vaccine () Covid-19 Vaccine () [facility] Start: 11-14-2022 Influenza vaccination C [facility] Start: 10-25-2022 End: 10-25-2022 [id number] [Mass/volume] in Serum or Plasma B2 MICROGLOBULIN B Lab Routine MGUS (monoclonal gammopathy of unknown significance) Expected: 10/25/2022 (Approximate), Expires: 10/25/2022 [facility] Work Phone: Comment on above: Expected: 10/25/2022 (Approximate), Expires: 10/25/2022 Start: 10-25-2022 End: 10-25-2022 Calcium.ionized [Moles/volume] in Blood CALCIUM IONIZED BLOOD Lab Routine MGUS (monoclonal gammopathy of unknown significance) Expected: 10/25/2022 (Approximate), Expires: 10/25/2022 [facility] Work Phone: Comment on above: Expected: 10/25/2022 (Approximate), Expires: 10/25/2022 Start: 10-25-2022 End: 10-25-2022 CBC W Auto Differential panel - Blood CBC + DIFF Lab Routine MGUS (monoclonal gammopathy of unknown significance) Expected: 10/25/2022 (Approximate), Expires: 10/25/2022 [facility] Work Phone: Comment on above: Expected: 10/25/2022 (Approximate), Expires: 10/25/2022 Start: 10-25-2022 End: 10-25-2022 Comprehensive metabolic 2000 panel - Serum or Plasma COMP METABOLIC PANEL Lab Routine MGUS (monoclonal gammopathy of unknown significance) Expected: 10/25/2022 (Approximate), Expires: 10/25/2022 [facility] Work Phone: Comment on above: Expected: 10/25/2022 (Approximate), Expires: 10/25/2022 Start: 10-25-2022 End: 12-25-2022 KAPPA/HAGAN,FREE,SER KAPPA/HAGAN,FREE,SER Lab Routine MGUS (monoclonal gammopathy of unknown significance) Expected: 10/25/2022 (Approximate), Expires: 12/25/2022 [facility] Work Phone: Comment on above: Expected: 10/25/2022 (Approximate), Expires: 12/25/2022 Start: 10-25-2022 End: 10-25-2022 Lactate dehydrogenase [Enzymatic activity/volume] in Serum or Plasma LD LACTATE DEHYDRO Lab Routine MGUS (monoclonal gammopathy of unknown significance) Expected: 10/25/2022 (Approximate), Expires: 10/25/2022 [facility] Work Phone: Comment on above: Expected: 10/25/2022 (Approximate), Expires: 10/25/2022 Start: 10-25-2022 End: 10-25-2022 MONOCLONAL PROTEIN, SERUM (BLOOD) MONOCLONAL PROTEIN, SERUM (BLOOD) Lab Routine MGUS (monoclonal gammopathy of unknown significance) Expected: 10/25/2022 (Approximate), Expires: 10/25/2022 [facility] Work Phone: Comment on above: Expected: 10/25/2022 (Approximate), Expires: 10/25/2022 Start: 10-25-2022 End: 10-25-2022 Phosphate [Mass/volume] in Serum or Plasma PHOSPHORUS INORGANIC Lab Routine MGUS (monoclonal gammopathy of unknown significance) Expected: 10/25/2022 (Approximate), Expires: 10/25/2022 [facility] Work Phone: Comment on above: Expected: 10/25/2022 (Approximate), Expires: 10/25/2022 Start: 10-25-2022 End: 10-25-2022 PROTEIN ELECTROPHORESIS SERUM W/INTERP PROTEIN ELECTROPHORESIS SERUM W/INTERP Lab Routine MGUS (monoclonal gammopathy of unknown significance) Expected: 10/25/2022 (Approximate), Expires: 10/25/2022 [facility] Work Phone: Comment on above: Expected: 10/25/2022 (Approximate), Expires: 10/25/2022 Start: 10-25-2022 End: 10-25-2022 Urate [Mass/volume] in Serum or Plasma URIC ACID BLOOD Lab Routine MGUS (monoclonal gammopathy of unknown significance) Expected: 10/25/2022 (Approximate), Expires: 10/25/2022 [facility] Work Phone: Comment on above: Expected: 10/25/2022 (Approximate), Expires: 10/25/2022 Start: 07-23-2022 COVID-19 VACCINE (6 - Moderna series) COVID-19 VACCINE (6 - Moderna series) [facility] Start: 05-12-2022 End: 05-12-2023 [id number] [Mass/volume] in Serum or Plasma B2 MICROGLOBULIN B Lab Routine Anemia due to vitamin B12 deficiency, unspecified B12 deficiency type MGUS (monoclonal gammopathy of unknown significance) Expected: 05/12/2022, Expires: 05/12/2023 [facility] Work Phone: Comment on above: Expected: 05/12/2022 , Expires: 05/12/2023 Start: 05-12-2022 End: 05-12-2023 Calcium.ionized [Moles/volume] in Blood CALCIUM IONIZED BLOOD Lab Routine Anemia due to vitamin B12 deficiency, unspecified B12 deficiency type MGUS (monoclonal gammopathy of unknown significance) Expected: 05/12/2022, Expires: 05/12/2023 [facility] Work Phone: Comment on above: Expected: 05/12/2022 , Expires: 05/12/2023 Start: 05-12-2022 End: 05-12-2023 CBC W Auto Differential panel - Blood CBC + DIFF Lab Routine Anemia due to vitamin B12 deficiency, unspecified B12 deficiency type MGUS (monoclonal gammopathy of unknown significance) Expected: 05/12/2022, Expires: 05/12/2023 [facility] Work Phone: Comment on above: Expected: 05/12/2022 , Expires: 05/12/2023 Start: 05-12-2022 End: 05-12-2023 Cobalamin (Vitamin B12) [Mass/volume] in Serum or Plasma VITAMIN B12 BLOOD Lab Routine Anemia due to vitamin B12 deficiency, unspecified B12 deficiency type MGUS (monoclonal gammopathy of unknown significance) Expected: 05/12/2022, Expires: 05/12/2023 [facility] Work Phone: Comment on above: Expected: 05/12/2022 , Expires: 05/12/2023 Start: 05-12-2022 End: 05-12-2023 Comprehensive metabolic 2000 panel - Serum or Plasma COMP METABOLIC PANEL Lab Routine Anemia due to vitamin B12 deficiency, unspecified B12 deficiency type MGUS (monoclonal gammopathy of unknown significance) Expected: 05/12/2022, Expires: 05/12/2023 [facility] Work Phone: Comment on above: Expected: 05/12/2022 , Expires: 05/12/2023 Start: 05-12-2022 End: 05-12-2023 Ferritin [Mass/volume] in Serum or Plasma FERRITIN BLD Lab Routine Anemia due to vitamin B12 deficiency, unspecified B12 deficiency type MGUS (monoclonal gammopathy of unknown significance) Expected: 05/12/2022, Expires: 05/12/2023 [facility] Work Phone: Comment on above: Expected: 05/12/2022 , Expires: 05/12/2023 Start: 05-12-2022 End: 05-12-2023 Folate [Mass/volume] in Serum or Plasma FOLATE SERUM Lab Routine Anemia due to vitamin B12 deficiency, unspecified B12 deficiency type MGUS (monoclonal gammopathy of unknown significance) Expected: 05/12/2022, Expires: 05/12/2023 [facility] Work Phone: Comment on above: Expected: 05/12/2022 , Expires: 05/12/2023 Start: 05-12-2022 End: 05-12-2023 Iron and Iron binding capacity panel - Serum or Plasma IRON + TIBC Lab Routine Anemia due to vitamin B12 deficiency, unspecified B12 deficiency type MGUS (monoclonal gammopathy of unknown significance) Expected: 05/12/2022, Expires: 05/12/2023 [facility] Work Phone: Comment on above: Expected: 05/12/2022 , Expires: 05/12/2023 Start: 05-12-2022 End: 07-12-2022 KAPPA/HAGAN,FREE,SER KAPPA/HAGAN,FREE,SER Lab Routine Anemia due to vitamin B12 deficiency, unspecified B12 deficiency type MGUS (monoclonal gammopathy of unknown significance) Expected: 05/12/2022, Expires: 07/12/2022 [facility] Work Phone: Comment on above: Expected: 05/12/2022 , Expires: 07/12/2022 Start: 05-12-2022 End: 05-12-2023 Lactate dehydrogenase [Enzymatic activity/volume] in Serum or Plasma LD LACTATE DEHYDRO Lab Routine Anemia due to vitamin B12 deficiency, unspecified B12 deficiency type MGUS (monoclonal gammopathy of unknown significance) Expected: 05/12/2022, Expires: 05/12/2023 [facility] Work Phone: Comment on above: Expected: 05/12/2022 , Expires: 05/12/2023 Start: 05-12-2022 End: 05-12-2023 MONOCLONAL PROTEIN, SERUM (BLOOD) MONOCLONAL PROTEIN, SERUM (BLOOD) Lab Routine Anemia due to vitamin B12 deficiency, unspecified B12 deficiency type MGUS (monoclonal gammopathy of unknown significance) Expected: 05/12/2022, Expires: 05/12/2023 [facility] Work Phone: Comment on above: Expected: 05/12/2022 , Expires: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 or prosecute any alcohol or drug abuse patient.[facility] Reason for Visit (unrecogniz ed section and content) Reason Comments Lab Orders Reason Comments Anemia Reason Comments Abdominal Pain 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 Reason Comments Patient Question Care Teams (unrecognized sec tion and content) Can Sorter Relationship Specialty Start Date End Date Nabil Díaz MD [address] [place] [address] PCP - General Family Practice 09/18/16 Can Sorter Relationship Specialty Start Date End Date Nabil Díaz MD [address] [place] [address] PCP - General Family Practice 09/18/16 Can Sorter Relationship Specialty Start Date End Date Nabil Díaz MD [address] [place] [address] PCP - General Family Medicine 09/18/16 Can Sorter Relationship Specialty Start Date End Date Nabil Díaz MD [address] [place] [address] PCP - General Family Medicine 09/18/16 Team Status: Active Member Role Status Dates Nabil Díaz MD Primary Care Provider Active Team Status: Inactive Member Role Status Dates Naibl Díaz MD Primary Care Provider Active Gama Weiner DO Emergency Provider Active Can Sorter Relationship Specialty Start Date End Date Nabil Díaz MD [address] [place] [facility] [place] [place] [id number] PCP - General Family Medicine 09/18/16 Can Sorter Relationship Specialty Start Date End Date Nabil Díaz MD [address] [place] [facility] [place] [id number] PCP - General Family Medicine 09/18/16 Can Sorter Relationship Specialty Start Date End Date Nabil Díaz MD [address] [place] [facility] [place] [address] PCP - General Family Medicine 09/18/16 Can Sorter Relationship Specialty Start Date End Date Nabil Díaz MD [address] [place] [facility] [place] [address] PCP - General Family Medicine 09/18/16 Team Status: Inactive Member Role Status Dates Nabil Díaz MD Attending Provider Active St art: March 05, 2023 End: March 05, 2023 Team Status: Inactive Member Role Status Dates Nabil Díaz MD Primary Care Provide r, Attending Provider Active Start: May 05, 2023 End: May 05, 2023 Team Status: Inactive Member Role Status Dates Nabil Díaz MD Primary Care Provide r, Attending Provider Active Start: May 25, 2023 End: May 25, 2023 Team Status: Inactive Member Role Status Dates Nabil Díaz MD Primary Care Provider Active Start: May 27, 2023 End: May 27, 2023 Aby Shaikh MD Attending Provider Active Start: May 27, 2023 End: May 27, 2023 Team Status: Inactive Member Role Status Dates Nabil Díaz MD Primary Care Provider Active Start: June 04, 2023 End: June 04, 2023 Aby Shaikh MD Attending Provider Active Start: June 04, 2023 End: June 04, 2023 Team Status: Inactive Member Role Status Dates Nabil Díaz MD Primary Care Provide r, Attending Provider Active Start: June 15, 2023 End: June 15, 2023 Team Status: Inactive Member Role Status Dates Nabil Díaz MD Primary Care Provide r, Attending Provider Active Start: July 07, 2023 End: July 07, 2023 Team Status: Inactive Member Role Status Dates Nabil Díaz MD Primary Care Provide r, Attending Provider Active Start: August 04, 2023 End: August 04, 2023 Team Status: Inactive Member Role Status Dates Nabil Díaz MD Primary Care Provide r, Attending Provider Active Start: August 26, 2023 End: August 26, 2023 FOR RECORDS PERTAINING TO PATIENTS WHO ARE OR HAVE BEEN ENROLLED IN A CHEMICAL DEPENDENCY/SUBSTANCEABUSE PROGRAM, SOME INFORMATION MAY BE OMITTED. This clinical summary was aggregated from multiple sources. Caution should be exercised in using it in the provision of clinical care. This summary normalizes information from multiple sources, and as a consequence, information in this document may materially change the coding, format and clinical context of patient data. In addition, data may be omitted in some cases. CLINICAL DECISIONS SHOULD BE BASED ON THE PRIMARY CLINICAL RECORDS. [facility] provides no warranty or guarantee of the accuracy or completeness of information in this document.
[2023-09-14 10:34] LABS: Hemoglobin 13.6 g/dL (14.0-18.0)
[2023-09-14 11:01] LABS: Prostate Specific Antigen Dx 1.06 ng/mL (<=4.00)
[2023-09-14 11:56] LABS: Albumin Level 3.8 g/dL (3.4-5.0); Anion Gap 10.6; BUN Creatinine Ratio 12.8; Calcium 8.4 mg/dL (8.5-10.1); Carbon Dioxide 29.4 mmol/L (21.0-32.0); Chloride 103 mmol/L (98-107); Estimated GFR (African America >60 (>=60); Estimated GFR (Non-African Ame 59 (>=60); Free T3 2.22 pg/mL (2.18-3.98); Glucose 88 mg/dL (74-106); Phosphorus 3.6 mg/dL (2.6-4.7); Sodium 139 mmol/L (136-145); Thyroid Stimulating Hormone 0.559 uIU/mL (0.358-3.740)
[2023-09-14 12:12] LABS: Free T4 0.96 ng/dL (0.76-1.46)
[2023-09-15 04:07] LABS: Testosterone 70 ng/dL (264-916)
== END 2023-09-14 09:40 | disposition home or self-care (01) ==
LOC: LAB 09:42
PROVIDERS: PCP Family Medicine; Visit Provider Internal Medicine
DX: E23.0 Hypopituitarism (principal); E03.8 Other specified hypothyroidism; E27.49 Other adrenocortical insufficiency; E03.9 Hypothyroidism, unspecified
CPT/HCPCS: 36415; 80069; 82306; 84153; 84403; 84439; 84443; 84481; 85018

== ENCOUNTER 2024-02-29 09:06 | Outpatient (OUT) | payer MEDICARE, OTHER, SELFPAY ==
[2024-02-29 09:53] LABS: Hemoglobin 14.9 g/dL (14.0-18.0)
[2024-02-29 10:19] LABS: Anion Gap 10.3; BUN Creatinine Ratio 10.9; Calcium 8.2 mg/dL (8.5-10.1); Carbon Dioxide 30.4 mmol/L (21.0-32.0); Chloride 106 mmol/L (98-107); Estimated GFR (African America >60 (>=60 mL/min/1.73m^2); Estimated GFR (Non-African Ame 53 (>=60 mL/min/1.73m^2); Free T3 2.52 pg/mL (2.18-3.98); Glucose 94 mg/dL (74-106); Potassium 3.7 mmol/L (3.5-5.1); Prostate Specific Antigen Dx 1.59 ng/mL (<=4.00); Sodium 143 mmol/L (136-145); Thyroid Stimulating Hormone 0.619 uIU/mL (0.358-3.740)
[2024-02-29 10:23] LABS: Free T4 0.84 ng/dL (0.76-1.46)
[2024-03-01 04:07] LABS: Testosterone 792 ng/dL (264-916)
== END 2024-02-29 09:07 | disposition home or self-care (01) ==
LOC: LAB 09:07
PROVIDERS: PCP Family Medicine; Visit Provider Internal Medicine
DX: E23.0 Hypopituitarism (principal); E03.8 Other specified hypothyroidism; E27.49 Other adrenocortical insufficiency; E03.9 Hypothyroidism, unspecified
CPT/HCPCS: 36415; 80048; 82306; 84153; 84403; 84439; 84443; 84481; 85018